=== PATIENT | female | born 1935 | race Caucasian/White ===

== ENCOUNTER 2017-10-09 11:33 | Inpatient (IN) | payer MEDICARE, MEDICAID ==
[~2017-10-09] VITALS: Ht 167.6 cm; Wt 45.5 kg
[~2017-10-09 11:33] MED LIST: MULT-933 PO; PANT40TA4 PO; SODI650T29 PO
[2017-10-09] MEDS ORDERED: dexamethasone sod phosphate 10mg/ml inj IV STA (12:01)
[2017-10-09] MEDS ORDERED: CefTRIAXone 2gm/D5W 50ml ADVTG 50 ML IV ONE (12:05)
[2017-10-09] MEDS ORDERED: clindamycin 600mg/D5W 50ml 50 ML IV ONE (12:05)
[2017-10-09 13:03] LABS: BASOPHILS % (AUTO) 0.3 % (0-1); EOSINOPHILS % (AUTO) 0 % (0-6); HEMATOCRIT 30.6 % (35.0-45.0); HEMOGLOBIN 11.1 g/dl (12.0-16.0); LYMPHOCYTES # (AUTO) 3.8 X10'3 (1.1-4.8); LYMPHOCYTES % (AUTO) 20.4 % (21-51); MEAN CORPUSCULAR HEMOGLOBIN 31.8 PG (27.0-31.0); MEAN CORPUSCULAR HGB CONC 36.3 % (33.0-36.5); MEAN CORPUSCULAR VOLUME 87.5 FL (78-98); MEAN PLATELET VOLUME 7.3 FL (7.4-10.4); MONOCYTES # (AUTO) 0.4 X10'3 (0-0.9); MONOCYTES % (AUTO) 1.9 % (2-12); NEUTROPHILS # (AUTO) 14.3 X10'3 (1.8-7.7); NEUTROPHILS % (AUTO) 77.4 % (42-75); PLATELET COUNT 174 X10'3 (140-440); RED CELL DISTRIBUTION WIDTH 15.7 % (11.5-14.5); WHITE BLOOD COUNT 18.5 X10'3 (4.5-11.0)
[2017-10-09 13:13] LABS: PARTIAL THROMBOPLASTIN TIME 21 SECONDS (22-32); PROTHROMBIN TIME 10.2 SECONDS (9.0-12.0)
[2017-10-09 13:16] LABS: ALANINE AMINOTRANSFERASE 16 U/L (12-78); ALBUMIN 3.1 G/DL (3.4-5.0); ALBUMIN/GLOBULIN RATIO 0.6 (1.1-1.5); ALKALINE PHOSPHATASE 85 IU/L (46-116); ANION GAP 21 (8-16); ASPARTATE AMINO TRANSFERASE 10 U/L (10-37); BILIRUBIN,TOTAL 0.4 MG/DL (0.1-1.0); BLOOD UREA NITROGEN 108 MG/DL (7-18); BUN/CREATININE RATIO 18.1 (6.6-38.0); CALCIUM 8.4 MG/DL (8.5-10.1); CHLORIDE 106 MMOL/L (99-107); CREATININE 5.98 MG/DL (0.40-0.90); GLUCOSE 105 MG/DL (70-104); MAGNESIUM 2.1 MG/DL (1.5-2.4); SODIUM 134 MMOL/L (135-145); TOTAL PROTEIN 8.7 G/DL (6.4-8.2); eGFR 7 ML/MIN
[2017-10-09 13:20] LABS: TOTAL CARBON DIOXIDE 6.9 MMOL/L (24-32)
[2017-10-09] MEDS ORDERED: normal saline 1000ml 1,000 ML IV ONE ×2 (13:35→16:30)
[2017-10-09 14:06] LABS: PLATELET ESTIMATE NORMAL
[2017-10-09 14:07] LABS: ANISOCYTOSIS 1+; POLYCHROMASIA 1+; SPHEROCYTES 1+
[2017-10-09 14:08] LABS: ROULEAUX 1+; TEAR DROP CELLS 1+
[2017-10-09 16:00] LABS: CLARITY,URINE CLOUDY (Clear); COLOR,URINE YELLOW (Yellow); GLUCOSE, URINE NEGATIVE (Neg); KETONES,URINE NEGATIVE (Neg); LEUKOCYTE ESTERASE ,URINE LARGE (Neg); NITRITES, URINE NEGATIVE (Neg); OCCULT BLOOD,URINE MODERATE (Neg); PH,URINE 5.5 (4.8-8.0); PROTEIN,URINE 30 mg/dl (Neg); UROBILINOGEN,URINE 0.2 E.U/dL (0.2-1.0)
[2017-10-09 16:03] LABS: UA COLLECTION TYPE CLN CATCH MIDSTREAM
[2017-10-09 16:24] LABS: BACTERIA,URINE 2+ /HPF (Neg); MUCUS STRANDS NONE SEEN /LPF (Neg); RBC,URINE 0-2 /HPF (0-2); SQUAMOUS EPITHELIAL CELL,UR FEW /LPF (FEW); WBC,URINE 50-100 /HPF (0-4)
[2017-10-09] MEDS ORDERED: sodium bicarbonate (8.4%) inj. 50 MEQ in dextrose 5%-water 1,000 ML IV ONE (20:10)
[2017-10-09] MEDS: sodium bicarbonate (8.4%) inj. 150 MEQ in dextrose 5%-water 1,000 ML IV SCH (21:25)
[2017-10-09] MEDS ORDERED: acetaminophen 325mg tablet PO PRN ×2 (21:25)
[2017-10-09 22:57] LABS: CREATINE KINASE 20 U/L (26-192); PHOSPHORUS 7.9 MG/DL (2.3-4.5)
[2017-10-09] MEDS ORDERED: vancomycin/NS 1 GM ADD-VANTAGE 250 ML IV ONE (23:40)
[2017-10-10] VITALS (24 sets, daily range): BP systolic 87–110; BP diastolic 39–76
[2017-10-10 00:17] LABS: RHEUM FACTOR QUAL REFLEX TITER POSITIVE (Neg)
[2017-10-10 00:29] LABS: RF TITER 20 IU/ml (Neg)
[2017-10-10] MEDS: piperacillin-tazo 2.25gm/50ml 50 ML IV SCH ×3 (00:59→16:53)
[2017-10-10 06:18] LABS: BASOPHILS % (AUTO) 0 % (0-1); EOSINOPHILS # (AUTO) 0.2 X10'3 (0-0.9); EOSINOPHILS % (AUTO) 1.7 % (0-6); HEMOGLOBIN 9.3 g/dl (12.0-16.0); LYMPHOCYTES # (AUTO) 1.7 X10'3 (1.1-4.8); LYMPHOCYTES % (AUTO) 11.8 % (21-51); MEAN CORPUSCULAR HEMOGLOBIN 31.5 PG (27.0-31.0); MEAN CORPUSCULAR HGB CONC 35.8 % (33.0-36.5); MONOCYTES # (AUTO) 0.1 X10'3 (0-0.9); MONOCYTES % (AUTO) 0.9 % (2-12); NEUTROPHILS % (AUTO) 85.6 % (42-75); PLATELET COUNT 145 X10'3 (140-440); RED BLOOD COUNT 2.95 X10'6 (4.20-5.60); RED CELL DISTRIBUTION WIDTH 16.4 % (11.5-14.5); WHITE BLOOD COUNT 14.1 X10'3 (4.5-11.0)
[2017-10-10 06:51] LABS: ALANINE AMINOTRANSFERASE 15 U/L (12-78); ALBUMIN 2.3 G/DL (3.4-5.0); ALBUMIN/GLOBULIN RATIO 0.5 (1.1-1.5); ALKALINE PHOSPHATASE 72 IU/L (46-116); ANION GAP 19 (8-16); ASPARTATE AMINO TRANSFERASE 11 U/L (10-37); BILIRUBIN,TOTAL 0.2 MG/DL (0.1-1.0); BLOOD UREA NITROGEN 98 MG/DL (7-18); BUN/CREATININE RATIO 19.3 (6.6-38.0); CALCIUM 7.6 MG/DL (8.5-10.1); CHLORIDE 110 MMOL/L (99-107); CREATININE 5.09 MG/DL (0.40-0.90); GLUCOSE 173 MG/DL (70-104); MAGNESIUM 1.9 MG/DL (1.5-2.4); POTASSIUM 4.2 MMOL/L (3.5-5.1); SODIUM 137 MMOL/L (135-145); TOTAL PROTEIN 6.9 G/DL (6.4-8.2); eGFR 8 ML/MIN
[2017-10-10 06:57] LABS: TOTAL CARBON DIOXIDE 7.9 MMOL/L (24-32)
[2017-10-10] MEDS ORDERED: vancomycin/NS 1 GM ADD-VANTAGE 250 ML X 1 DOSE IV PRN (08:00)
[2017-10-10] MEDS: pantoprazole 40 MG vial IV SCH (08:40)
[2017-10-10] MEDS: heparin, porcine 5000 units/ml vial SQ SCH ×2 (08:40→20:21)
[2017-10-10] MEDS: sodium bicarbonate (8.4%) inj. 150 MEQ in dextrose 5%-water 1,000 ML IV SCH ×2 (11:19→21:38)
[2017-10-10 14:12] LABS: SODIUM,URINE RANDOM < 15 MEQ/L; TOTAL PROTEIN,URINE RANDOM 89.4 MG/DL
[2017-10-10] MEDS: ondansetron/PF 4mg/2ml inj IV PRN (21:35)
[2017-10-11] VITALS (24 sets, daily range): BP systolic 82–113; BP diastolic 40–57
[2017-10-11] MEDS: piperacillin-tazo 2.25gm/50ml 50 ML IV SCH ×3 (00:04→16:35)
[2017-10-11 01:57] LABS: UREA NITROGEN 24HR,URINE 6.3 GM/24HR (7-20)
[2017-10-11] MEDS: VANCOMYCIN LEVEL IV SCH (03:00)
[2017-10-11] MEDS: ondansetron/PF 4mg/2ml inj IV PRN (04:47)
[2017-10-11 06:18] LABS: ALANINE AMINOTRANSFERASE 9 U/L (12-78); ALBUMIN 2.1 G/DL (3.4-5.0); ALBUMIN/GLOBULIN RATIO 0.5 (1.1-1.5); ALKALINE PHOSPHATASE 72 IU/L (46-116); ANION GAP 13 (8-16); ASPARTATE AMINO TRANSFERASE 10 U/L (10-37); BASOPHILS # (AUTO) 0.1 X10'3 (0-0.2); BASOPHILS % (AUTO) 0.6 % (0-1); BILIRUBIN,TOTAL 0.4 MG/DL (0.1-1.0); BLOOD UREA NITROGEN 85 MG/DL (7-18); BUN/CREATININE RATIO 18.5 (6.6-38.0); CALCIUM 7.1 MG/DL (8.5-10.1); CHLORIDE 102 MMOL/L (99-107); CREATININE 4.59 MG/DL (0.40-0.90); EOSINOPHILS # (AUTO) 0.8 X10'3 (0-0.9); EOSINOPHILS % (AUTO) 4.7 % (0-6); GLUCOSE 144 MG/DL (70-104); HEMATOCRIT 28.6 % (35.0-45.0); HEMOGLOBIN 10.3 g/dl (12.0-16.0); LYMPHOCYTES # (AUTO) 2.5 X10'3 (1.1-4.8); LYMPHOCYTES % (AUTO) 14.9 % (21-51); MAGNESIUM 1.5 MG/DL (1.5-2.4); MEAN CORPUSCULAR HEMOGLOBIN 31.1 PG (27.0-31.0); MEAN CORPUSCULAR HGB CONC 35.9 % (33.0-36.5); MEAN CORPUSCULAR VOLUME 86.6 FL (78-98); MEAN PLATELET VOLUME 7.6 FL (7.4-10.4); MONOCYTES # (AUTO) 0.4 X10'3 (0-0.9); MONOCYTES % (AUTO) 2.5 % (2-12); NEUTROPHILS # (AUTO) 13.1 X10'3 (1.8-7.7); NEUTROPHILS % (AUTO) 77.3 % (42-75); PHOSPHORUS 5.9 MG/DL (2.3-4.5); PLATELET COUNT 155 X10'3 (140-440); RED BLOOD COUNT 3.31 X10'6 (4.20-5.60); RED CELL DISTRIBUTION WIDTH 16.4 % (11.5-14.5); SODIUM 133 MMOL/L (135-145); TOTAL CARBON DIOXIDE 18.4 MMOL/L (24-32); TOTAL PROTEIN 6.7 G/DL (6.4-8.2); VANCOMYCIN,RANDOM 12.4 UG/ML; eGFR 9 ML/MIN
[2017-10-11 06:23] LABS: POTASSIUM 2.9 MMOL/L (3.5-5.1)
[2017-10-11] MEDS ORDERED: potassium Cl 20 mEq SR tablet PO PRN ×2 (07:05)
[2017-10-11] MEDS ORDERED: potassium Cl 40MEQ/NS 500ml 500 ML IV PRN (07:05)
[2017-10-11] MEDS: heparin, porcine 5000 units/ml vial SQ SCH ×2 (08:18→19:38)
[2017-10-11] MEDS: pantoprazole 40 MG vial IV SCH (08:18)
[2017-10-11] MEDS: LACTOBACILLUS RHAMNOSUS GG 15 billion unit sprinkle caps PO SCH (08:18)
[2017-10-11] MEDS: K, MAG and/or Phos replacement - Verify level? MC SCH (08:18)
[2017-10-11] MEDS: potassium Cl 40MEQ/NS 500ml 500 ML IV PRN ×2 (10:13→20:12)
[2017-10-11] MEDS ORDERED: dexamethasone 4mg/ml inj IM SCH (14:00)
[2017-10-11] MEDS: clindamycin 600mg/D5W 50ml 50 ML IV SCH ×2 (15:05→19:37)
[2017-10-11] MEDS: dexamethasone 4mg/ml inj IV SCH ×2 (15:07→19:37)
[2017-10-11] MEDS: [UNRECOGNIZED DRUG - OTHER] IV SCH (21:25)
[2017-10-11] MEDS: SODIUM BICARBONATE IV SCH (21:25)
[2017-10-11] MEDS: POTASSIUM CL IV SCH (21:25)
[2017-10-11] MEDS ORDERED: polyethylene glycol 3350 17gm powd pack PO PRN (21:25)
[2017-10-12] VITALS (14 sets, daily range): BP systolic 96–122; BP diastolic 50–69
[2017-10-12] MEDS: piperacillin-tazo 2.25gm/50ml 50 ML IV SCH ×4 (00:06→23:54)
[2017-10-12] MEDS: POTASSIUM CL IV SCH ×2 (00:08→06:37)
[2017-10-12] MEDS: SODIUM BICARBONATE IV SCH ×2 (00:08→06:37)
[2017-10-12] MEDS: [UNRECOGNIZED DRUG - OTHER] IV SCH ×2 (00:08→06:37)
[2017-10-12] MEDS: VANCOMYCIN LEVEL IV SCH (00:53)
[2017-10-12] MEDS: clindamycin 600mg/D5W 50ml 50 ML IV SCH ×4 (01:06→20:44)
[2017-10-12] MEDS: dexamethasone 4mg/ml inj IV SCH ×4 (01:06→20:44)
[2017-10-12 05:33] LABS: BASOPHILS % (AUTO) 0 % (0-1); EOSINOPHILS # (AUTO) 0.1 X10'3 (0-0.9); EOSINOPHILS % (AUTO) 0.7 % (0-6); HEMATOCRIT 22.9 % (35.0-45.0); HEMOGLOBIN 8.4 g/dl (12.0-16.0); LYMPHOCYTES # (AUTO) 1.2 X10'3 (1.1-4.8); LYMPHOCYTES % (AUTO) 9.6 % (21-51); MEAN CORPUSCULAR HEMOGLOBIN 31.6 PG (27.0-31.0); MEAN CORPUSCULAR HGB CONC 36.8 % (33.0-36.5); MEAN CORPUSCULAR VOLUME 85.9 FL (78-98); MEAN PLATELET VOLUME 8.2 FL (7.4-10.4); MONOCYTES % (AUTO) 0.3 % (2-12); NEUTROPHILS % (AUTO) 89.4 % (42-75); PLATELET COUNT 123 X10'3 (140-440); RED BLOOD COUNT 2.67 X10'6 (4.20-5.60); RED CELL DISTRIBUTION WIDTH 16.5 % (11.5-14.5); WHITE BLOOD COUNT 12.3 X10'3 (4.5-11.0)
[2017-10-12 05:41] LABS: ANISOCYTOSIS 1+; PLATELET ESTIMATE DECREASED
[2017-10-12 05:42] LABS: ELLIPTOCYTES FEW; POLYCHROMASIA FEW; SPHEROCYTES FEW; TEAR DROP CELLS FEW
[2017-10-12 05:58] LABS: ALANINE AMINOTRANSFERASE 19 U/L (12-78); ALBUMIN 1.8 G/DL (3.4-5.0); ALBUMIN/GLOBULIN RATIO 0.4 (1.1-1.5); ALKALINE PHOSPHATASE 94 IU/L (46-116); ANION GAP 12 (8-16); ASPARTATE AMINO TRANSFERASE 13 U/L (10-37); BILIRUBIN,TOTAL 0.3 MG/DL (0.1-1.0); BLOOD UREA NITROGEN 68 MG/DL (7-18); BUN/CREATININE RATIO 18.6 (6.6-38.0); CALCIUM 6.3 MG/DL (8.5-10.1); CHLORIDE 102 MMOL/L (99-107); CREATININE 3.65 MG/DL (0.40-0.90); GLUCOSE 191 MG/DL (70-104); MAGNESIUM 1.3 MG/DL (1.5-2.4); PHOSPHORUS 5.3 MG/DL (2.3-4.5); POTASSIUM 4.7 MMOL/L (3.5-5.1); SODIUM 138 MMOL/L (135-145); TOTAL CARBON DIOXIDE 24.2 MMOL/L (24-32); eGFR 12 ML/MIN
[2017-10-12] MEDS: K, MAG and/or Phos replacement - Verify level? MC SCH (08:00)
[2017-10-12] MEDS: pantoprazole 40 MG vial IV SCH (09:05)
[2017-10-12] MEDS: heparin, porcine 5000 units/ml vial SQ SCH ×2 (09:06→20:00)
[2017-10-12] MEDS: magnesium Cl slow-release 64mg tablet PO PRN ×2 (09:07→17:39)
[2017-10-12] MEDS: LACTOBACILLUS RHAMNOSUS GG 15 billion unit sprinkle caps PO SCH (09:07)
[2017-10-12] MEDS ORDERED: AMIO200T4 PO (11:31)
[2017-10-12] MEDS: amiodarone 200mg tablet PO SCH (23:54)
[2017-10-13] MEDS: clindamycin 600mg/D5W 50ml 50 ML IV SCH ×4 (02:24→19:43)
[2017-10-13] MEDS: dexamethasone 4mg/ml inj IV SCH ×4 (02:24→19:43)
[2017-10-13 06:18] LABS: BASOPHILS % (AUTO) 0 % (0-1); EOSINOPHILS # (AUTO) 0.3 X10'3 (0-0.9); EOSINOPHILS % (AUTO) 1.9 % (0-6); HEMATOCRIT 23.4 % (35.0-45.0); HEMOGLOBIN 8.4 g/dl (12.0-16.0); LYMPHOCYTES # (AUTO) 1.9 X10'3 (1.1-4.8); LYMPHOCYTES % (AUTO) 12.9 % (21-51); MEAN CORPUSCULAR HEMOGLOBIN 31.6 PG (27.0-31.0); MEAN CORPUSCULAR HGB CONC 36.1 % (33.0-36.5); MEAN CORPUSCULAR VOLUME 87.5 FL (78-98); MEAN PLATELET VOLUME 8.4 FL (7.4-10.4); MONOCYTES # (AUTO) 0.2 X10'3 (0-0.9); MONOCYTES % (AUTO) 1.5 % (2-12); NEUTROPHILS # (AUTO) 12.4 X10'3 (1.8-7.7); NEUTROPHILS % (AUTO) 83.7 % (42-75); PLATELET COUNT 132 X10'3 (140-440); RED BLOOD COUNT 2.67 X10'6 (4.20-5.60); RED CELL DISTRIBUTION WIDTH 16.3 % (11.5-14.5); WHITE BLOOD COUNT 14.8 X10'3 (4.5-11.0)
[2017-10-13 06:46] LABS: ALANINE AMINOTRANSFERASE 18 U/L (12-78); ALBUMIN 1.9 G/DL (3.4-5.0); ALBUMIN/GLOBULIN RATIO 0.5 (1.1-1.5); ALKALINE PHOSPHATASE 71 IU/L (46-116); ANION GAP 10 (8-16); ASPARTATE AMINO TRANSFERASE 12 U/L (10-37); BILIRUBIN,TOTAL 0.3 MG/DL (0.1-1.0); BLOOD UREA NITROGEN 66 MG/DL (7-18); BUN/CREATININE RATIO 20.6 (6.6-38.0); CALCIUM 6.3 MG/DL (8.5-10.1); CHLORIDE 99 MMOL/L (99-107); GLUCOSE 138 MG/DL (70-104); MAGNESIUM 1.4 MG/DL (1.5-2.4); PHOSPHORUS 4.8 MG/DL (2.3-4.5); POTASSIUM 4.6 MMOL/L (3.5-5.1); SODIUM 134 MMOL/L (135-145); TOTAL CARBON DIOXIDE 24.7 MMOL/L (24-32); TOTAL PROTEIN 6.1 G/DL (6.4-8.2); eGFR 14 ML/MIN
[2017-10-13 07:00] VITALS: BP 124/88
[2017-10-13] MEDS: K, MAG and/or Phos replacement - Verify level? MC SCH (08:00)
[2017-10-13] MEDS: magnesium Cl slow-release 64mg tablet PO PRN ×2 (08:06→17:34)
[2017-10-13] MEDS: amiodarone 200mg tablet PO SCH ×2 (08:06→19:43)
[2017-10-13] MEDS: pantoprazole 40mg Tablet.DR PO SCH (08:06)
[2017-10-13] MEDS: heparin, porcine 5000 units/ml vial SQ SCH ×2 (08:06→19:43)
[2017-10-13] MEDS: LACTOBACILLUS RHAMNOSUS GG 15 billion unit sprinkle caps PO SCH (08:06)
[2017-10-13] MEDS: piperacillin-tazo 2.25gm/50ml 50 ML IV SCH ×3 (10:12→23:47)
[2017-10-13] MEDS: normal saline 1000ml 1,000 ML IV SCH (14:05)
[2017-10-13] MEDS: LACTOSE-FREE FOOD 237ML (BOOST) PO SCH (18:21)
[2017-10-13 19:10] LABS: ANTINUCLEAR ANTIBODIES Positive (Negative)
[2017-10-13 20:00] VITALS: BP 124/58
[2017-10-14 00:01] VITALS: BP 113/54
[2017-10-14] MEDS: clindamycin 600mg/D5W 50ml 50 ML IV SCH ×4 (01:33→20:26)
[2017-10-14] MEDS: dexamethasone 4mg/ml inj IV SCH ×4 (01:33→20:27)
[2017-10-14 05:22] LABS: COMPLEMENT C3, SERUM 63 mg/dL (82-167); COMPLEMENT C4, SERUM <2 mg/dL (14-44)
[2017-10-14 05:41] LABS: BASOPHILS % (AUTO) 0.1 % (0-1); EOSINOPHILS # (AUTO) 0.2 X10'3 (0-0.9); EOSINOPHILS % (AUTO) 1.9 % (0-6); HEMATOCRIT 22.4 % (35.0-45.0); HEMOGLOBIN 8.1 g/dl (12.0-16.0); LYMPHOCYTES # (AUTO) 2.3 X10'3 (1.1-4.8); LYMPHOCYTES % (AUTO) 18.9 % (21-51); MEAN CORPUSCULAR HEMOGLOBIN 31.6 PG (27.0-31.0); MEAN CORPUSCULAR HGB CONC 36.4 % (33.0-36.5); MEAN PLATELET VOLUME 8.3 FL (7.4-10.4); MONOCYTES # (AUTO) 0.2 X10'3 (0-0.9); MONOCYTES % (AUTO) 1.6 % (2-12); NEUTROPHILS # (AUTO) 9.3 X10'3 (1.8-7.7); NEUTROPHILS % (AUTO) 77.5 % (42-75); PLATELET COUNT 141 X10'3 (140-440); RED BLOOD COUNT 2.58 X10'6 (4.20-5.60); RED CELL DISTRIBUTION WIDTH 16.2 % (11.5-14.5); WHITE BLOOD COUNT 12.1 X10'3 (4.5-11.0)
[2017-10-14 06:04] LABS: ALANINE AMINOTRANSFERASE 15 U/L (12-78); ALBUMIN 1.9 G/DL (3.4-5.0); ALBUMIN/GLOBULIN RATIO 0.5 (1.1-1.5); ALKALINE PHOSPHATASE 72 IU/L (46-116); ANION GAP 10 (8-16); ASPARTATE AMINO TRANSFERASE 14 U/L (10-37); BILIRUBIN,TOTAL 0.2 MG/DL (0.1-1.0); BLOOD UREA NITROGEN 68 MG/DL (7-18); CALCIUM 6.6 MG/DL (8.5-10.1); CHLORIDE 101 MMOL/L (99-107); CREATININE 2.96 MG/DL (0.40-0.90); GLUCOSE 132 MG/DL (70-104); MAGNESIUM 1.4 MG/DL (1.5-2.4); PHOSPHORUS 4.9 MG/DL (2.3-4.5); POTASSIUM 4.8 MMOL/L (3.5-5.1); SODIUM 133 MMOL/L (135-145); TOTAL CARBON DIOXIDE 21.7 MMOL/L (24-32); TOTAL PROTEIN 6.1 G/DL (6.4-8.2); eGFR 15 ML/MIN
[2017-10-14] MEDS: normal saline 1000ml 1,000 ML IV SCH ×2 (06:45→23:25)
[2017-10-14 07:17] VITALS: BP 115/65
[2017-10-14] MEDS: LACTOBACILLUS RHAMNOSUS GG 15 billion unit sprinkle caps PO SCH (07:30)
[2017-10-14] MEDS: pantoprazole 40mg Tablet.DR PO SCH (07:32)
[2017-10-14] MEDS: LACTOSE-FREE FOOD 237ML (BOOST) PO SCH ×3 (08:00→18:00)
[2017-10-14] MEDS: K, MAG and/or Phos replacement - Verify level? MC SCH (08:00)
[2017-10-14] MEDS: heparin, porcine 5000 units/ml vial SQ SCH ×2 (08:32→20:26)
[2017-10-14] MEDS: amiodarone 200mg tablet PO SCH ×2 (08:32→20:27)
[2017-10-14] MEDS: piperacillin-tazo 2.25gm/50ml 50 ML IV SCH ×2 (08:33→16:42)
[2017-10-14 11:00] VITALS: BP 121/70
[2017-10-14 20:00] VITALS: BP 106/50
[2017-10-15] VITALS: BP 107/52
[2017-10-15] MEDS: piperacillin-tazo 2.25gm/50ml 50 ML IV SCH ×2 (00:04→09:50)
[2017-10-15] MEDS: clindamycin 600mg/D5W 50ml 50 ML IV SCH ×3 (01:51→15:59)
[2017-10-15] MEDS: dexamethasone 4mg/ml inj IV SCH ×2 (01:53→08:13)
[2017-10-15] MEDS: normal saline 1000ml 1,000 ML IV SCH (05:27)
[2017-10-15 06:00] VITALS: BP 125/70
[2017-10-15 06:04] LABS: BASOPHILS % (AUTO) 0.1 % (0-1); EOSINOPHILS # (AUTO) 0.2 X10'3 (0-0.9); EOSINOPHILS % (AUTO) 1.9 % (0-6); HEMATOCRIT 22.9 % (35.0-45.0); HEMOGLOBIN 8.2 g/dl (12.0-16.0); LYMPHOCYTES # (AUTO) 2.1 X10'3 (1.1-4.8); LYMPHOCYTES % (AUTO) 21.8 % (21-51); MEAN CORPUSCULAR HEMOGLOBIN 31.2 PG (27.0-31.0); MEAN CORPUSCULAR HGB CONC 35.7 % (33.0-36.5); MEAN CORPUSCULAR VOLUME 87.4 FL (78-98); MEAN PLATELET VOLUME 8.4 FL (7.4-10.4); MONOCYTES # (AUTO) 0.2 X10'3 (0-0.9); NEUTROPHILS # (AUTO) 7.1 X10'3 (1.8-7.7); NEUTROPHILS % (AUTO) 74.2 % (42-75); PLATELET COUNT 124 X10'3 (140-440); RED BLOOD COUNT 2.62 X10'6 (4.20-5.60); RED CELL DISTRIBUTION WIDTH 15.6 % (11.5-14.5); WHITE BLOOD COUNT 9.6 X10'3 (4.5-11.0)
[2017-10-15 06:40] LABS: ALANINE AMINOTRANSFERASE 19 U/L (12-78); ALBUMIN 1.9 G/DL (3.4-5.0); ALBUMIN/GLOBULIN RATIO 0.5 (1.1-1.5); ALKALINE PHOSPHATASE 74 IU/L (46-116); ANION GAP 11 (8-16); ASPARTATE AMINO TRANSFERASE 15 U/L (10-37); BILIRUBIN,TOTAL 0.3 MG/DL (0.1-1.0); BLOOD UREA NITROGEN 70 MG/DL (7-18); BUN/CREATININE RATIO 24.3 (6.6-38.0); CALCIUM 6.6 MG/DL (8.5-10.1); CHLORIDE 103 MMOL/L (99-107); CREATININE 2.88 MG/DL (0.40-0.90); GLUCOSE 119 MG/DL (70-104); MAGNESIUM 1.4 MG/DL (1.5-2.4); POTASSIUM 4.8 MMOL/L (3.5-5.1); SODIUM 135 MMOL/L (135-145); TOTAL PROTEIN 5.9 G/DL (6.4-8.2); eGFR 16 ML/MIN
[2017-10-15] MEDS: LACTOSE-FREE FOOD 237ML (BOOST) PO SCH ×2 (08:00→13:00)
[2017-10-15] MEDS: K, MAG and/or Phos replacement - Verify level? MC SCH (08:00)
[2017-10-15] MEDS: LACTOBACILLUS RHAMNOSUS GG 15 billion unit sprinkle caps PO SCH (08:09)
[2017-10-15] MEDS: pantoprazole 40mg Tablet.DR PO SCH (08:09)
[2017-10-15] MEDS: amiodarone 200mg tablet PO SCH (08:09)
[2017-10-15] MEDS: heparin, porcine 5000 units/ml vial SQ SCH (08:11)
[2017-10-15 11:00] VITALS: BP 116/53
== END 2017-10-15 16:11 | DRG 683 ==
LOC: ER 11:33 → ED HOLD 21:21 → ICU 2S 23:54 → SUR 3N 10-12 15:36
PROVIDERS: ADMIT Internal Medicine Critical Care Medicine; ATTEND Family Medicine
DX: N17.9 Acute kidney failure, unspecified (principal); E44.0 Moderate protein-calorie malnutrition; E86.0 Dehydration; K94.09 Other complications of colostomy; N39.0 Urinary tract infection, site not specified; Z68.1 Body mass index [BMI] 19.9 or less, adult; F03.90 Unspecified dementia, unspecified severity, without behavioral disturbance, psychotic disturbance, mood disturbance, and anxiety; K57.30 Diverticulosis of large intestine without perforation or abscess without bleeding; N18.9 Chronic kidney disease, unspecified; E04.2 Nontoxic multinodular goiter; K11.20 Sialoadenitis, unspecified; B96.20 Unspecified Escherichia coli [E. coli] as the cause of diseases classified elsewhere; Z88.2 Allergy status to sulfonamides; Z90.49 Acquired absence of other specified parts of digestive tract
CPT/HCPCS: 36415; 70490; 71045; 74176; 76536; 80053; 80202; 81001; 82550; 82570; 82595; 83605; 83735; 84100; 84133; 84145; 84156; 84300; 84439; 84443; 84560; 85025; 85610; 85730; 86038; 86160; 86430; 86431; 87040; 87070; 87077; 87088; 87186; 93005; 96365; 96375; 97110; 97116; 97162; 97530; 99285; A4315; A6213; A6449; C1758; C9113; J0696; J1100; J1644; J2270; J2405; J2543; J3370; J3480; J3490; J7030

== ENCOUNTER 2017-11-10 17:38 | Inpatient (IN) | payer MEDICARE, MEDICAID ==
[~2017-11-10] VITALS: Ht 167.6 cm; Wt 43.0 kg
[~2017-11-10 17:38] MED LIST changes: +AMIO200T4 PO; +NAFCILLIN IV ONE; +NORMAL SALINE IV ONE; -SODI650T29 PO
[2017-11-10 18:54] LABS: MEAN CORPUSCULAR HEMOGLOBIN 34.1 PG (27.0-31.0); RED CELL DISTRIBUTION WIDTH 19.1 % (11.5-14.5); WHITE BLOOD COUNT 10.9 X10'3 (4.5-11.0)
[2017-11-10 18:59] LABS: CLARITY,URINE Clear (Clear); COLOR,URINE Yellow (Yellow); GLUCOSE, URINE Negative (Neg); KETONES,URINE Negative (Neg); LEUKOCYTE ESTERASE ,URINE Negative (Neg); NITRITES, URINE Negative (Neg); OCCULT BLOOD,URINE Negative (Neg); PROTEIN,URINE 30 mg/dl (Neg); UROBILINOGEN,URINE 0.2 E.U/dL (0.2-1.0)
[2017-11-10 19:01] LABS: ALANINE AMINOTRANSFERASE 16 U/L (12-78); ALBUMIN/GLOBULIN RATIO 0.5 (1.1-1.5); ALKALINE PHOSPHATASE 97 IU/L (46-116); ANION GAP 18 (8-16); ASPARTATE AMINO TRANSFERASE 11 U/L (10-37); BILIRUBIN,TOTAL 0.2 MG/DL (0.1-1.0); BLOOD UREA NITROGEN 100 MG/DL (7-18); BUN/CREATININE RATIO 18.9 (6.6-38.0); CALCIUM 8.3 MG/DL (8.5-10.1); CHLORIDE 103 MMOL/L (99-107); GLUCOSE 115 MG/DL (70-104); MAGNESIUM 1.9 MG/DL (1.5-2.4); POTASSIUM 4.8 MMOL/L (3.5-5.1); SODIUM 132 MMOL/L (135-145); TOTAL PROTEIN 8.7 G/DL (6.4-8.2); eGFR 8 ML/MIN
[2017-11-10 19:03] LABS: TOTAL CARBON DIOXIDE 11.5 MMOL/L (24-32)
[2017-11-10 19:06] LABS: UA COLLECTION TYPE STRAIGHT CATH
[2017-11-10 19:16] LABS: AMORPHOUS URATES 1+; BACTERIA,URINE NONE SEEN /HPF (Neg); MUCUS STRANDS NONE SEEN /LPF (Neg); RBC,URINE NONE SEEN /HPF (0-2); SQUAMOUS EPITHELIAL CELL,UR NONE SEEN /LPF (FEW); WBC,URINE 0-4 /HPF (0-4)
[2017-11-10 19:28] LABS: BASOPHILS # (AUTO) 0.1 X10'3 (0-0.2); BASOPHILS % (AUTO) 0.6 % (0-1); EOSINOPHILS # (AUTO) 0.2 X10'3 (0-0.9); EOSINOPHILS % (AUTO) 1.8 % (0-6); HEMATOCRIT 27.6 % (35.0-45.0); HEMOGLOBIN 10.6 g/dl (12.0-16.0); LYMPHOCYTES # (AUTO) 1.9 X10'3 (1.1-4.8); LYMPHOCYTES % (AUTO) 17.7 % (21-51); MEAN CORPUSCULAR HGB CONC 38.3 % (33.0-36.5); MEAN CORPUSCULAR VOLUME 89.1 FL (78-98); MEAN PLATELET VOLUME 7.8 FL (7.4-10.4); MONOCYTES # (AUTO) 0.6 X10'3 (0-0.9); MONOCYTES % (AUTO) 5.4 % (2-12); NEUTROPHILS # (AUTO) 8.1 X10'3 (1.8-7.7); NEUTROPHILS % (AUTO) 74.5 % (42-75); PLATELET COUNT 238 X10'3 (140-440)
[2017-11-10] MEDS ORDERED: normal saline 1000ML IV soln IVB ONE (19:45)
[2017-11-10 20:21] LABS: ABG BASE EXCESS -18.1 mmol/L (-2.0-3.0); ABG HCO3 7.4 mmol/L (22.0-26.0); ABG OXYGEN SATURATION 98.3 % (95-98); ABG PH (T) 7.253 (7.350-7.450); ALLEN'S TEST Positive; FCOHb 0.3 % (0.5-1.5); FMetHb 0.7 % (0.3-1.12); FO2Hb 97.3 % (94-100); PATIENT TEMPERATURE 36.3; RESPIRATORY RATE (OBSERVED) 16 b/min
[2017-11-10 20:28] LABS: ANISOCYTOSIS 2+; PLATELET ESTIMATE NORMAL
[2017-11-10 20:34] LABS: BURR CELLS FEW; TEAR DROP CELLS FEW
[2017-11-10 20:35] LABS: SPHEROCYTES 1+
[2017-11-10] MEDS ORDERED: metroNIDAZOLE-Flagyl 500mg/NS 100 ML IV STA (20:36)
[2017-11-10 20:42] LABS: INR 0.9 INR; PROTHROMBIN TIME 9.8 SECONDS (9.0-12.0)
[2017-11-10 20:43] LABS: PARTIAL THROMBOPLASTIN TIME < 20 SECONDS (22-32)
[2017-11-10] MEDS ORDERED: NAFCILLIN IV ONE ×4 (20:45)
[2017-11-10] MEDS ORDERED: NORMAL SALINE IV ONE ×4 (20:45)
[2017-11-10] MEDS: sodium bicarbonate (8.4%) inj. 150 MEQ in dextrose 5%-water 1,000 ML IV SCH ×2 (21:14→22:29)
[2017-11-10] MEDS ORDERED: acetaminophen 325mg tablet PO PRN (21:15)
[2017-11-10] MEDS ORDERED: mag hydrox/Alum hydrox/simeth 30ml oral suspension PO PRN (21:15)
[2017-11-10] MEDS ORDERED: magnesium hydroxide 30ml (MOM) UD suspension PO PRN (21:15)
[2017-11-10] MEDS ORDERED: sodium bicarbonate (8.4%) inj. 150 MEQ in dextrose 5%-water 1,000 ML IV SCH (21:20)
[2017-11-10] MEDS ORDERED: HYDROcodone/acetaminophen 5mg/325mg tablet PO PRN (21:30)
[2017-11-10 21:47] LABS: BILIRUBIN,DIRECT 0.1 MG/DL (0-0.3)
[2017-11-10 22:30] VITALS: BP 124/56
[2017-11-10] MEDS ORDERED: MAGN400C PO (23:28)
[2017-11-10] MEDS ORDERED: FURO-150 PO (23:28)
[2017-11-10] MEDS ORDERED: OMEP20TA23 PO (23:28)
[2017-11-10] MEDS ORDERED: SODI15OR6 PO (23:28)
[2017-11-11 05:00] VITALS: BP 112/54
[2017-11-11 06:04] LABS: ALANINE AMINOTRANSFERASE 19 U/L (12-78); ALBUMIN 2.5 G/DL (3.4-5.0); ALBUMIN/GLOBULIN RATIO 0.5 (1.1-1.5); ALKALINE PHOSPHATASE 88 IU/L (46-116); ANION GAP 16 (8-16); ASPARTATE AMINO TRANSFERASE 10 U/L (10-37); BILIRUBIN,TOTAL 0.3 MG/DL (0.1-1.0); BLOOD UREA NITROGEN 98 MG/DL (7-18); BUN/CREATININE RATIO 19.6 (6.6-38.0); CALCIUM 7.8 MG/DL (8.5-10.1); CHLORIDE 106 MMOL/L (99-107); POTASSIUM 4.2 MMOL/L (3.5-5.1); SODIUM 135 MMOL/L (135-145); TOTAL PROTEIN 7.5 G/DL (6.4-8.2); eGFR 8 ML/MIN
[2017-11-11 06:33] LABS: MONOCYTES # (AUTO) 0.4 X10'3 (0-0.9); NEUTROPHILS # (AUTO) 6.5 X10'3 (1.8-7.7)
[2017-11-11 06:36] LABS: GLUCOSE 112 MG/DL (70-104)
[2017-11-11 06:40] LABS: TOTAL CARBON DIOXIDE 13.5 MMOL/L (24-32)
[2017-11-11 06:42] LABS: BASOPHILS % (AUTO) 0.2 % (0-1); EOSINOPHILS # (AUTO) 0.1 X10'3 (0-0.9); EOSINOPHILS % (AUTO) 1.6 % (0-6); HEMATOCRIT 25.6 % (35.0-45.0); HEMOGLOBIN 9.7 g/dl (12.0-16.0); MEAN CORPUSCULAR HEMOGLOBIN 33.8 PG (27.0-31.0); MEAN CORPUSCULAR HGB CONC 37.7 % (33.0-36.5); MEAN CORPUSCULAR VOLUME 89.8 FL (78-98); MEAN PLATELET VOLUME 7.2 FL (7.4-10.4); MONOCYTES % (AUTO) 4.9 % (2-12); NEUTROPHILS % (AUTO) 71.3 % (42-75); PLATELET COUNT 231 X10'3 (140-440); RED BLOOD COUNT 2.86 X10'6 (4.20-5.60); WHITE BLOOD COUNT 9.1 X10'3 (4.5-11.0)
[2017-11-11] MEDS: heparin, porcine 5000 units/ml vial SQ SCH ×2 (07:38→21:29)
[2017-11-11] MEDS: amiodarone 200mg tablet PO SCH (07:38)
[2017-11-11] MEDS: pantoprazole 40mg Tablet.DR PO SCH (07:38)
[2017-11-11] MEDS: HYDROcodone/acetaminophen 5mg/325mg tablet PO PRN ×2 (07:41→17:40)
[2017-11-11 10:00] VITALS: BP 100/52
[2017-11-11] MEDS: sodium bicarbonate (8.4%) inj. 150 MEQ in dextrose 5%-water 1,000 ML IV SCH (11:05)
[2017-11-11 12:12] LABS: ALBUMIN 2.3 G/DL (3.4-5.0); ANION GAP 14 (8-16); BLOOD UREA NITROGEN 92 MG/DL (7-18); BUN/CREATININE RATIO 19.8 (6.6-38.0); CALCIUM 7.4 MG/DL (8.5-10.1); CHLORIDE 105 MMOL/L (99-107); CREATININE 4.65 MG/DL (0.40-0.90); GLUCOSE 111 MG/DL (70-104); POTASSIUM 3.7 MMOL/L (3.5-5.1); SODIUM 136 MMOL/L (135-145); TOTAL CARBON DIOXIDE 16.6 MMOL/L (24-32); eGFR 9 ML/MIN
[2017-11-11 14:38] LABS: CLARITY,URINE CLEAR (Clear); COLOR,URINE YELLOW (Yellow); GLUCOSE, URINE NEGATIVE (Neg); KETONES,URINE NEGATIVE (Neg); LEUKOCYTE ESTERASE ,URINE NEGATIVE (Neg); NITRITES, URINE NEGATIVE (Neg); OCCULT BLOOD,URINE NEGATIVE (Neg); PH,URINE 5.5 (4.8-8.0); PROTEIN,URINE TRACE mg/dl (Neg); UROBILINOGEN,URINE 0.2 E.U/dL (0.2-1.0)
[2017-11-11 14:40] LABS: UA COLLECTION TYPE CLN CATCH MIDSTREAM
[2017-11-11 14:45] LABS: MUCUS STRANDS FEW /LPF (Neg); SQUAMOUS EPITHELIAL CELL,UR FEW /LPF (FEW)
[2017-11-11 14:46] LABS: COARSE GRANULAR CAST 0-3 /LPF (NEGATIVE)
[2017-11-11 14:47] LABS: BACTERIA,URINE FEW /HPF (Neg); RBC,URINE 0-2 /HPF (0-2); SODIUM,URINE RANDOM < 15 MEQ/L; TOTAL PROTEIN,URINE RANDOM 53.2 MG/DL; WBC,URINE 0-4 /HPF (0-4)
[2017-11-11 15:20] LABS: UA EOSINOPHILS NO EOS /HPF
[2017-11-11] MEDS: piperacillin-tazo 2.25gm/50ml 50 ML IV SCH (16:28)
[2017-11-11 18:00] VITALS: BP 108/54
[2017-11-11 18:17] LABS: ALBUMIN 2.4 G/DL (3.4-5.0); ANION GAP 15 (8-16); BLOOD UREA NITROGEN 84 MG/DL (7-18); BUN/CREATININE RATIO 19.3 (6.6-38.0); CALCIUM 7.4 MG/DL (8.5-10.1); CHLORIDE 102 MMOL/L (99-107); CREATININE 4.35 MG/DL (0.40-0.90); SODIUM 136 MMOL/L (135-145); TOTAL CARBON DIOXIDE 19.3 MMOL/L (24-32); eGFR 10 ML/MIN
[2017-11-11 18:19] LABS: GLUCOSE 108 MG/DL (70-104)
[2017-11-11] MEDS: ondansetron/PF 4mg/2ml inj IV PRN (18:59)
[2017-11-11 22:00] VITALS: BP 101/56
[2017-11-12] MEDS: sodium bicarbonate (8.4%) inj. 150 MEQ in dextrose 5%-water 1,000 ML IV SCH (00:01)
[2017-11-12] MEDS: piperacillin-tazo 2.25gm/50ml 50 ML IV SCH ×3 (00:01→16:49)
[2017-11-12] MEDS: HYDROcodone/acetaminophen 5mg/325mg tablet PO PRN ×3 (00:05→22:15)
[2017-11-12 06:00] VITALS: BP 102/51
[2017-11-12 06:53] LABS: ALANINE AMINOTRANSFERASE 14 U/L (12-78); ALBUMIN 2.1 G/DL (3.4-5.0); ALBUMIN/GLOBULIN RATIO 0.5 (1.1-1.5); ALKALINE PHOSPHATASE 71 IU/L (46-116); ANION GAP 14 (8-16); ASPARTATE AMINO TRANSFERASE 10 U/L (10-37); BILIRUBIN,TOTAL 0.3 MG/DL (0.1-1.0); BLOOD UREA NITROGEN 81 MG/DL (7-18); BUN/CREATININE RATIO 19.3 (6.6-38.0); CHLORIDE 101 MMOL/L (99-107); CREATININE 4.19 MG/DL (0.40-0.90); GLUCOSE 101 MG/DL (70-104); POTASSIUM 3.3 MMOL/L (3.5-5.1); SODIUM 139 MMOL/L (135-145); TOTAL CARBON DIOXIDE 23.8 MMOL/L (24-32); TOTAL PROTEIN 6.6 G/DL (6.4-8.2); eGFR 10 ML/MIN
[2017-11-12 06:54] LABS: BASOPHILS % (AUTO) 0.6 % (0-1); EOSINOPHILS # (AUTO) 0.2 X10'3 (0-0.9); EOSINOPHILS % (AUTO) 2.5 % (0-6); HEMOGLOBIN 8.5 g/dl (12.0-16.0); LYMPHOCYTES # (AUTO) 2.4 X10'3 (1.1-4.8); LYMPHOCYTES % (AUTO) 28.9 % (21-51); MEAN CORPUSCULAR HEMOGLOBIN 34.5 PG (27.0-31.0); MEAN CORPUSCULAR HGB CONC 38.9 % (33.0-36.5); MEAN CORPUSCULAR VOLUME 88.7 FL (78-98); MEAN PLATELET VOLUME 7.1 FL (7.4-10.4); MONOCYTES # (AUTO) 0.4 X10'3 (0-0.9); MONOCYTES % (AUTO) 4.5 % (2-12); NEUTROPHILS # (AUTO) 5.4 X10'3 (1.8-7.7); NEUTROPHILS % (AUTO) 63.5 % (42-75); PLATELET COUNT 198 X10'3 (140-440); RED BLOOD COUNT 2.47 X10'6 (4.20-5.60); RED CELL DISTRIBUTION WIDTH 19.2 % (11.5-14.5); WHITE BLOOD COUNT 8.5 X10'3 (4.5-11.0)
[2017-11-12 07:10] LABS: HEMATOCRIT 21.9 % (35.0-45.0)
[2017-11-12] MEDS: pantoprazole 40mg Tablet.DR PO SCH (08:07)
[2017-11-12] MEDS: heparin, porcine 5000 units/ml vial SQ SCH ×2 (08:07→22:16)
[2017-11-12] MEDS: amiodarone 200mg tablet PO SCH (08:07)
[2017-11-12] MEDS: aspirin 325mg tablet, delayed-release (Ecotrin) PO SCH (08:07)
[2017-11-12 10:00] VITALS: BP 93/50
[2017-11-12] MEDS: sodium bicarbonate (8.4%) inj. 150 MEQ in sodium chloride 0.45% 1,000 ML IV SCH (13:24)
[2017-11-12 18:00] VITALS: BP 102/46
[2017-11-12] MEDS: ondansetron/PF 4mg/2ml inj IV PRN (18:36)
[2017-11-12 22:20] VITALS: BP 111/55
[2017-11-13] MEDS: piperacillin-tazo 2.25gm/50ml 50 ML IV SCH ×2 (00:02→08:08)
[2017-11-13] MEDS: HYDROcodone/acetaminophen 5mg/325mg tablet PO PRN ×2 (02:24→14:18)
[2017-11-13] MEDS: sodium bicarbonate (8.4%) inj. 150 MEQ in sodium chloride 0.45% 1,000 ML IV SCH ×2 (02:24→12:02)
[2017-11-13 05:30] VITALS: BP 96/51
[2017-11-13 06:42] LABS: BASOPHILS % (AUTO) 0.5 % (0-1); EOSINOPHILS # (AUTO) 0.2 X10'3 (0-0.9); EOSINOPHILS % (AUTO) 3.2 % (0-6); HEMATOCRIT 22.4 % (35.0-45.0); HEMOGLOBIN 8.5 g/dl (12.0-16.0); LYMPHOCYTES # (AUTO) 1.9 X10'3 (1.1-4.8); LYMPHOCYTES % (AUTO) 25.9 % (21-51); MEAN CORPUSCULAR HEMOGLOBIN 34.3 PG (27.0-31.0); MEAN CORPUSCULAR HGB CONC 38.2 % (33.0-36.5); MEAN CORPUSCULAR VOLUME 89.9 FL (78-98); MEAN PLATELET VOLUME 7.4 FL (7.4-10.4); MONOCYTES # (AUTO) 0.4 X10'3 (0-0.9); MONOCYTES % (AUTO) 5.1 % (2-12); NEUTROPHILS # (AUTO) 4.9 X10'3 (1.8-7.7); NEUTROPHILS % (AUTO) 65.3 % (42-75); PLATELET COUNT 188 X10'3 (140-440); RED BLOOD COUNT 2.49 X10'6 (4.20-5.60); RED CELL DISTRIBUTION WIDTH 18.8 % (11.5-14.5); WHITE BLOOD COUNT 7.5 X10'3 (4.5-11.0)
[2017-11-13 06:59] LABS: ALANINE AMINOTRANSFERASE 15 U/L (12-78); ALBUMIN 1.9 G/DL (3.4-5.0); ALBUMIN/GLOBULIN RATIO 0.4 (1.1-1.5); ALKALINE PHOSPHATASE 63 IU/L (46-116); ANION GAP 12 (8-16); ASPARTATE AMINO TRANSFERASE 10 U/L (10-37); BILIRUBIN,TOTAL 0.3 MG/DL (0.1-1.0); BLOOD UREA NITROGEN 73 MG/DL (7-18); BUN/CREATININE RATIO 18.3 (6.6-38.0); CALCIUM 6.8 MG/DL (8.5-10.1); CHLORIDE 98 MMOL/L (99-107); CREATININE 3.98 MG/DL (0.40-0.90); GLUCOSE 83 MG/DL (70-104); POTASSIUM 3.4 MMOL/L (3.5-5.1); SODIUM 140 MMOL/L (135-145); TOTAL CARBON DIOXIDE 30.4 MMOL/L (24-32); TOTAL PROTEIN 6.3 G/DL (6.4-8.2); eGFR 11 ML/MIN
[2017-11-13 07:48] LABS: ANISOCYTOSIS 2+; PLATELET ESTIMATE NORMAL
[2017-11-13 07:49] LABS: POLYCHROMASIA FEW; SPHEROCYTES 2+; TARGET CELLS FEW
[2017-11-13] MEDS: heparin, porcine 5000 units/ml vial SQ SCH ×2 (08:08→21:52)
[2017-11-13] MEDS: pantoprazole 40mg Tablet.DR PO SCH (08:08)
[2017-11-13] MEDS: aspirin 325mg tablet, delayed-release (Ecotrin) PO SCH (08:09)
[2017-11-13] MEDS: amiodarone 200mg tablet PO SCH (08:09)
[2017-11-13 10:00] VITALS: BP 102/48
[2017-11-13 18:00] VITALS: BP 107/47
[2017-11-13] MEDS: normal saline 1000ml 1,000 ML IV SCH (18:04)
[2017-11-13 22:00] VITALS: BP 112/52
[2017-11-14 05:13] LABS: BASOPHILS % (AUTO) 0.5 % (0-1); EOSINOPHILS # (AUTO) 0.2 X10'3 (0-0.9); EOSINOPHILS % (AUTO) 3.7 % (0-6); HEMATOCRIT 22.5 % (35.0-45.0); HEMOGLOBIN 8.6 g/dl (12.0-16.0); LYMPHOCYTES # (AUTO) 1.5 X10'3 (1.1-4.8); MEAN CORPUSCULAR HEMOGLOBIN 34.2 PG (27.0-31.0); MEAN CORPUSCULAR HGB CONC 38.1 % (33.0-36.5); MEAN CORPUSCULAR VOLUME 89.8 FL (78-98); MEAN PLATELET VOLUME 6.9 FL (7.4-10.4); MONOCYTES # (AUTO) 0.3 X10'3 (0-0.9); MONOCYTES % (AUTO) 4.2 % (2-12); NEUTROPHILS # (AUTO) 4.4 X10'3 (1.8-7.7); NEUTROPHILS % (AUTO) 68.6 % (42-75); PLATELET COUNT 187 X10'3 (140-440); RED CELL DISTRIBUTION WIDTH 18.6 % (11.5-14.5); WHITE BLOOD COUNT 6.4 X10'3 (4.5-11.0)
[2017-11-14 05:51] LABS: ALANINE AMINOTRANSFERASE 14 U/L (12-78); ALBUMIN 1.9 G/DL (3.4-5.0); ALBUMIN/GLOBULIN RATIO 0.4 (1.1-1.5); ALKALINE PHOSPHATASE 62 IU/L (46-116); ANION GAP 10 (8-16); ASPARTATE AMINO TRANSFERASE 12 U/L (10-37); BILIRUBIN,TOTAL 0.2 MG/DL (0.1-1.0); BLOOD UREA NITROGEN 70 MG/DL (7-18); BUN/CREATININE RATIO 19.6 (6.6-38.0); CALCIUM 7.1 MG/DL (8.5-10.1); CHLORIDE 97 MMOL/L (99-107); CREATININE 3.58 MG/DL (0.40-0.90); GLUCOSE 89 MG/DL (70-104); POTASSIUM 3.4 MMOL/L (3.5-5.1); SODIUM 137 MMOL/L (135-145); TOTAL CARBON DIOXIDE 29.8 MMOL/L (24-32); TOTAL PROTEIN 6.5 G/DL (6.4-8.2); eGFR 12 ML/MIN
[2017-11-14 06:00] VITALS: BP 124/60
[2017-11-14] MEDS: aspirin 325mg tablet, delayed-release (Ecotrin) PO SCH (09:09)
[2017-11-14] MEDS: pantoprazole 40mg Tablet.DR PO SCH (09:09)
[2017-11-14] MEDS: amiodarone 200mg tablet PO SCH (09:09)
[2017-11-14] MEDS: heparin, porcine 5000 units/ml vial SQ SCH ×2 (09:10→19:33)
[2017-11-14] MEDS: HYDROcodone/acetaminophen 5mg/325mg tablet PO PRN (09:11)
[2017-11-14 10:00] VITALS: BP 119/74
[2017-11-14] MEDS: amox tr/potassium clavulanate 875/125mg TAB PO SCH (17:53)
[2017-11-14] MEDS: normal saline 1000ml 1,000 ML IV SCH (17:54)
[2017-11-14 18:00] VITALS: BP 113/51
[2017-11-14 22:00] VITALS: BP 134/59
[2017-11-15 05:35] LABS: BASOPHILS % (AUTO) 0.7 % (0-1); EOSINOPHILS # (AUTO) 0.2 X10'3 (0-0.9); EOSINOPHILS % (AUTO) 3.5 % (0-6); HEMATOCRIT 23.5 % (35.0-45.0); LYMPHOCYTES # (AUTO) 1.5 X10'3 (1.1-4.8); LYMPHOCYTES % (AUTO) 24.1 % (21-51); MEAN CORPUSCULAR HEMOGLOBIN 34.4 PG (27.0-31.0); MEAN CORPUSCULAR HGB CONC 38.3 % (33.0-36.5); MEAN CORPUSCULAR VOLUME 89.8 FL (78-98); MEAN PLATELET VOLUME 7.3 FL (7.4-10.4); MONOCYTES # (AUTO) 0.3 X10'3 (0-0.9); MONOCYTES % (AUTO) 4.6 % (2-12); NEUTROPHILS # (AUTO) 4.1 X10'3 (1.8-7.7); NEUTROPHILS % (AUTO) 67.1 % (42-75); PLATELET COUNT 193 X10'3 (140-440); RED BLOOD COUNT 2.62 X10'6 (4.20-5.60); RED CELL DISTRIBUTION WIDTH 18.2 % (11.5-14.5); WHITE BLOOD COUNT 6.1 X10'3 (4.5-11.0)
[2017-11-15 06:00] VITALS: BP 132/60
[2017-11-15 06:28] LABS: ALANINE AMINOTRANSFERASE 9 U/L (12-78); ALBUMIN/GLOBULIN RATIO 0.4 (1.1-1.5); ALKALINE PHOSPHATASE 72 IU/L (46-116); ANION GAP 10 (8-16); ASPARTATE AMINO TRANSFERASE 12 U/L (10-37); BILIRUBIN,TOTAL 0.2 MG/DL (0.1-1.0); BLOOD UREA NITROGEN 63 MG/DL (7-18); BUN/CREATININE RATIO 21.4 (6.6-38.0); CALCIUM 7.7 MG/DL (8.5-10.1); CHLORIDE 102 MMOL/L (99-107); CREATININE 2.94 MG/DL (0.40-0.90); POTASSIUM 3.9 MMOL/L (3.5-5.1); SODIUM 139 MMOL/L (135-145); TOTAL CARBON DIOXIDE 27.4 MMOL/L (24-32); TOTAL PROTEIN 6.7 G/DL (6.4-8.2); eGFR 15 ML/MIN
[2017-11-15 06:30] LABS: GLUCOSE 88 MG/DL (70-104)
[2017-11-15] MEDS ORDERED: AMOX-580 PO (08:04)
[2017-11-15] MEDS ORDERED: ASPI-41 PO (08:04)
[2017-11-15] MEDS: pantoprazole 40mg Tablet.DR PO SCH (08:48)
[2017-11-15] MEDS: amox tr/potassium clavulanate 875/125mg TAB PO SCH (08:48)
[2017-11-15] MEDS: amiodarone 200mg tablet PO SCH (08:49)
[2017-11-15] MEDS: aspirin 325mg tablet, delayed-release (Ecotrin) PO SCH (08:49)
[2017-11-15] MEDS: heparin, porcine 5000 units/ml vial SQ SCH (08:55)
[2017-11-15] MEDS ORDERED: lactobacillus rhamnosus 10,000 MMU CELLS/CAPSULE PO SCH (17:30)
== END 2017-11-15 15:10 | DRG 155 ==
LOC: ER 17:39 → ED HOLD 21:13 → EDBEDREQTM 21:21 → EDBEDREQ 21:44 → ORTHO 4S 22:20
PROVIDERS: ADMIT Internal Medicine; ATTEND Internal Medicine
DX: K11.20 Sialoadenitis, unspecified (principal); N17.9 Acute kidney failure, unspecified; E87.2 Acidosis; N18.4 Chronic kidney disease, stage 4 (severe); I48.0 Paroxysmal atrial fibrillation; R64 Cachexia; M35.00 Sjogren syndrome, unspecified; E86.0 Dehydration; D64.9 Anemia, unspecified; E05.20 Thyrotoxicosis with toxic multinodular goiter without thyrotoxic crisis or storm; Z68.1 Body mass index [BMI] 19.9 or less, adult; F03.90 Unspecified dementia, unspecified severity, without behavioral disturbance, psychotic disturbance, mood disturbance, and anxiety; Z93.2 Ileostomy status; Z88.2 Allergy status to sulfonamides; Z79.899 Other long term (current) drug therapy; Z90.49 Acquired absence of other specified parts of digestive tract; Z85.038 Personal history of other malignant neoplasm of large intestine; Z82.5 Family history of asthma and other chronic lower respiratory diseases
CPT/HCPCS: 36415; 36600; 70450; 70486; 80048; 80053; 80076; 81001; 82570; 82803; 83605; 83735; 84145; 84156; 84300; 84439; 84443; 85018; 85025; 85610; 85730; 87040; 87070; 87207; 96365; 97110; 97116; 97161; 97530; 99285; A4421; A6212; A6213; J1644; J2405; J2543; J3490; J7030

== ENCOUNTER 2017-12-10 15:38 | Inpatient (IN) | payer MEDICARE, MEDICAID ==
[~2017-12-10] VITALS: Ht 167.6 cm; Wt 54.0 kg
[~2017-12-10 15:38] MED LIST changes: +AMOX-580 PO; +ASPI-41 PO; +MAGN400C PO; -NAFCILLIN IV ONE; -NORMAL SALINE IV ONE; +OMEP20TA23 PO; -PANT40TA4 PO; +SODI15OR6 PO
[2017-12-10] MEDS ORDERED: normal saline 1000ml 1,000 ML IV ONE (16:10)
[2017-12-10 16:29] LABS: BASOPHILS # (AUTO) 0.1 X10'3 (0-0.2); BASOPHILS % (AUTO) 1.1 % (0-1); EOSINOPHILS # (AUTO) 0.1 X10'3 (0-0.9); EOSINOPHILS % (AUTO) 0.6 % (0-6); HEMATOCRIT 31.7 % (35.0-45.0); HEMOGLOBIN 11.8 g/dl (12.0-16.0); LYMPHOCYTES # (AUTO) 3.1 X10'3 (1.1-4.8); LYMPHOCYTES % (AUTO) 26.2 % (21-51); MEAN CORPUSCULAR HEMOGLOBIN 33.7 PG (27.0-31.0); MEAN CORPUSCULAR VOLUME 90.9 FL (78-98); MONOCYTES # (AUTO) 0.4 X10'3 (0-0.9); MONOCYTES % (AUTO) 3.5 % (2-12); NEUTROPHILS # (AUTO) 8.1 X10'3 (1.8-7.7); NEUTROPHILS % (AUTO) 68.6 % (42-75); PLATELET COUNT 300 X10'3 (140-440); RED BLOOD COUNT 3.49 X10'6 (4.20-5.60); RED CELL DISTRIBUTION WIDTH 16.4 % (11.5-14.5); WHITE BLOOD COUNT 11.8 X10'3 (4.5-11.0)
[2017-12-10 16:45] LABS: INR 1.1 INR; PARTIAL THROMBOPLASTIN TIME 21 SECONDS (22-32); PROTHROMBIN TIME 11.1 SECONDS (9.0-12.0)
[2017-12-10 16:49] LABS: ALANINE AMINOTRANSFERASE 19 U/L (12-78); ALBUMIN 2.1 G/DL (3.4-5.0); ALBUMIN/GLOBULIN RATIO 0.4 (1.1-1.5); ALKALINE PHOSPHATASE 69 IU/L (46-116); ANION GAP 25 (8-16); ASPARTATE AMINO TRANSFERASE 16 U/L (10-37); BILIRUBIN,TOTAL 0.3 MG/DL (0.1-1.0); BLOOD UREA NITROGEN 67 MG/DL (7-18); BUN/CREATININE RATIO 15.2 (6.6-38.0); CALCIUM 7.4 MG/DL (8.5-10.1); CHLORIDE 109 MMOL/L (99-107); POTASSIUM 4.2 MMOL/L (3.5-5.1); SODIUM 150 MMOL/L (135-145); TOTAL CARBON DIOXIDE 16.1 MMOL/L (24-32); TOTAL PROTEIN 7.8 G/DL (6.4-8.2); eGFR 10 ML/MIN
[2017-12-10 16:51] LABS: GLUCOSE 104 MG/DL (70-104)
[2017-12-10] MEDS ORDERED: cefTRIAXone 1g/NS 100ml IVPB 100 ML IV ONE (17:20)
[2017-12-10 17:46] LABS: COLOR,URINE YELLOW (Yellow); GLUCOSE, URINE NEGATIVE (Neg); KETONES,URINE TRACE mg/dl (Neg); LEUKOCYTE ESTERASE ,URINE TRACE (Neg); NITRITES, URINE NEGATIVE (Neg); OCCULT BLOOD,URINE LARGE (Neg); PH,URINE 5.5 (4.8-8.0); PROTEIN,URINE 30 mg/dl (Neg); UROBILINOGEN,URINE 0.2 E.U/dL (0.2-1.0)
[2017-12-10 17:52] LABS: UA COLLECTION TYPE FOLEY CATH
[2017-12-10] MEDS ORDERED: furosemide 10 MG/1 ML 10ml inj IV ONE (17:55)
[2017-12-10 17:59] LABS: BACTERIA,URINE 2+ /HPF (Neg); RBC,URINE 50-100 /HPF (0-2); SQUAMOUS EPITHELIAL CELL,UR FEW /LPF (FEW)
[2017-12-10 18:00] LABS: AMORPHOUS URATES 3+
[2017-12-10 18:01] LABS: CLARITY,URINE Slightly Cloudy (Clear)
[2017-12-10 18:30] LABS: ABG BASE EXCESS -8.7 mmol/L (-2.0-3.0); ABG HCO3 16.5 mmol/L (22.0-26.0); ABG OXYGEN SATURATION 98.5 % (95-98); ABG PCO2 (T) 32.6 mmHg (32.0-45.0); ABG PH (T) 7.321 (7.350-7.450); ABG PO2 (T) 154.8 mmHg (83-108); FCOHb 0.3 % (0.5-1.5); FLOW 4 L/min; FMetHb 0.2 % (0.3-1.12); PATIENT TEMPERATURE 36.7; RESPIRATORY RATE (OBSERVED) 20 b/min; TOTAL HEMOGLOBIN 10.9 G/dl (12.0-16.0)
[2017-12-10] MEDS ORDERED: nitroGLYCERIN-Tridil 50MG/D5W 250 ML IV ONE (18:35)
[2017-12-10] MEDS ORDERED: DULO-31 PO (21:44)
[2017-12-10] MEDS ORDERED: ONDA4TAB9 SL (21:44)
[2017-12-10] MEDS ORDERED: HYDR-569 PO (21:44)
[2017-12-10] MEDS ORDERED: ACET-2119 PO (22:03)
[2017-12-10] MEDS ORDERED: SODI650T29 PO (22:03)
[2017-12-10] MEDS ORDERED: CYAN1TAB18 (22:03)
[2017-12-11] MEDS ORDERED: magnesium hydroxide 30ml (MOM) UD suspension PO PRN (04:50)
[2017-12-11] MEDS ORDERED: magnesium 2GM in 50ml NS 50 ML IV PRN (04:50)
[2017-12-11] MEDS ORDERED: morphine 4 MG/ML inj SYRINge IV PRN ×2 (04:50)
[2017-12-11] MEDS ORDERED: magnesium 4gm in 100ml NS 100 ML IV PRN (04:50)
[2017-12-11] MEDS ORDERED: mag hydrox/Alum hydrox/simeth 30ml oral suspension PO PRN (04:50)
[2017-12-11] MEDS ORDERED: ondansetron/PF 4mg/2ml inj IV PRN (04:50)
[2017-12-11] MEDS ORDERED: magnesium Cl slow-release 64mg tablet PO PRN (04:50)
[2017-12-11] MEDS ORDERED: albuterol 2.5 MG/3 ML nebule NEB PRN (04:50)
[2017-12-11] MEDS ORDERED: potassium Cl 40MEQ/NS 500ml 500 ML IV PRN ×2 (04:50)
[2017-12-11] MEDS ORDERED: acetaminophen 325mg tablet PO PRN (04:50)
[2017-12-11] MEDS ORDERED: potassium Cl 20 mEq SR tablet PO PRN ×2 (04:50)
[2017-12-11] MEDS ORDERED: heparin 10,000 units/1 ML INJ IV PRN ×2 (05:00→07:02)
[2017-12-11] MEDS ORDERED: heparin 10,000 units/1 ML INJ IV ONE (05:00)
[2017-12-11] MEDS: normal saline 1000ml 1,000 ML IV SCH ×2 (06:24→18:40)
[2017-12-11] MEDS ORDERED: normal saline 250ml IV soln 250 ML IV ONE (06:50)
[2017-12-11] MEDS: pantoprazole 40mg Tablet.DR PO SCH (07:14)
[2017-12-11] MEDS: amiodarone 200mg tablet PO SCH ×2 (07:14→20:41)
[2017-12-11] MEDS: nitroGLYCERIN 0.4mg/hour patch TD SCH (08:00)
[2017-12-11] MEDS ORDERED: SODIUM POLYSTYRENE SULFONATE 30 GM PO SCH (08:00)
[2017-12-11] MEDS: duloxetine 30mg CAPSULE.DR PO SCH (08:00)
[2017-12-11] MEDS: K and/or MAG REPLACEMENT MC SCH (08:00)
[2017-12-11] MEDS: cefTRIAXone 1g/NS 100ml IVPB 100 ML IV SCH (08:07)
[2017-12-11] MEDS: magnesium oxide 400mg tablet PO SCH ×2 (09:08→20:41)
[2017-12-11] MEDS: multivitamins, therapeutics tablet PO SCH (09:08)
[2017-12-11 09:10] LABS: ALBUMIN 1.9 G/DL (3.4-5.0); ANION GAP 22 (8-16); BLOOD UREA NITROGEN 63 MG/DL (7-18); BUN/CREATININE RATIO 13.8 (6.6-38.0); CALCIUM 7.3 MG/DL (8.5-10.1); CHLORIDE 110 MMOL/L (99-107); CREATININE 4.57 MG/DL (0.40-0.90); POTASSIUM 3.8 MMOL/L (3.5-5.1); SODIUM 151 MMOL/L (135-145); TOTAL CARBON DIOXIDE 19.4 MMOL/L (24-32); eGFR 9 ML/MIN
[2017-12-11 09:12] LABS: GLUCOSE 100 MG/DL (70-104)
[2017-12-11] MEDS: aspirin 325mg tablet, delayed-release (Ecotrin) PO SCH (09:50)
[2017-12-11] MEDS ORDERED: MAGN64TA13 (12:09)
[2017-12-11] MEDS ORDERED: VIT1TABL48 PO (12:09)
[2017-12-11 14:15] VITALS: BP 118/74
[2017-12-11 14:35] VITALS: BP 92/39
[2017-12-11] MEDS ORDERED: LORazepam 2 mg/ml vial IM ONE (17:25)
[2017-12-11] MEDS: methylPREDNISolone sod succ 125mg/2ml vial IV SCH (17:58)
[2017-12-11] MEDS ORDERED: LORazepam 2 mg/ml vial IV ONE (18:00)
[2017-12-11] MEDS ORDERED: furosemide 10 MG/1 ML 10ml inj IV ONE (20:30)
[2017-12-11] MEDS: lactobacillus rhamnosus 10,000 MMU CELLS/CAPSULE PO SCH (20:41)
[2017-12-11] MEDS: heparin, porcine 5000 units/ml vial SQ SCH (20:41)
[2017-12-11] MEDS ORDERED: temazepam 15mg capsule PO PRN (21:00)
[2017-12-11 22:20] LABS: ALANINE AMINOTRANSFERASE 15 U/L (12-78); ALBUMIN 1.7 G/DL (3.4-5.0); ALBUMIN/GLOBULIN RATIO 0.3 (1.1-1.5); ALKALINE PHOSPHATASE 61 IU/L (46-116); ANION GAP 23 (8-16); ASPARTATE AMINO TRANSFERASE 12 U/L (10-37); BILIRUBIN,TOTAL 0.3 MG/DL (0.1-1.0); BLOOD UREA NITROGEN 69 MG/DL (7-18); BUN/CREATININE RATIO 14.9 (6.6-38.0); CALCIUM 7.3 MG/DL (8.5-10.1); CHLORIDE 111 MMOL/L (99-107); CREATININE 4.62 MG/DL (0.40-0.90); POTASSIUM 3.9 MMOL/L (3.5-5.1); SODIUM 153 MMOL/L (135-145); TOTAL CARBON DIOXIDE 18.6 MMOL/L (24-32); TOTAL PROTEIN 7.2 G/DL (6.4-8.2); eGFR 9 ML/MIN
[2017-12-11 22:24] LABS: GLUCOSE 101 MG/DL (70-104)
[2017-12-12] MEDS ORDERED: methylPREDNISolone sod succ 125mg/2ml vial IV ONE
[2017-12-12] MEDS: methylPREDNISolone sod succ 125mg/2ml vial IV SCH ×3 (00:44→16:06)
[2017-12-12 07:29] LABS: HEMATOCRIT 34.3 % (35.0-45.0); HEMOGLOBIN 12.4 g/dl (12.0-16.0); MEAN CORPUSCULAR HEMOGLOBIN 32.9 PG (27.0-31.0); MEAN CORPUSCULAR HGB CONC 36.1 % (33.0-36.5); MEAN CORPUSCULAR VOLUME 91.2 FL (78-98); MEAN PLATELET VOLUME 7.2 FL (7.4-10.4); PLATELET COUNT 235 X10'3 (140-440); RED BLOOD COUNT 3.76 X10'6 (4.20-5.60); RED CELL DISTRIBUTION WIDTH 16.8 % (11.5-14.5); WHITE BLOOD COUNT 14.9 X10'3 (4.5-11.0)
[2017-12-12] MEDS: magnesium oxide 400mg tablet PO SCH ×2 (08:00→20:41)
[2017-12-12] MEDS: K and/or MAG REPLACEMENT MC SCH (08:00)
[2017-12-12] MEDS: nitroGLYCERIN 0.4mg/hour patch TD SCH (08:00)
[2017-12-12] MEDS: multivitamins, therapeutics tablet PO SCH (08:00)
[2017-12-12 08:03] LABS: ALANINE AMINOTRANSFERASE 17 U/L (12-78); ALBUMIN 1.8 G/DL (3.4-5.0); ALBUMIN/GLOBULIN RATIO 0.3 (1.1-1.5); ALKALINE PHOSPHATASE 60 IU/L (46-116); ANION GAP 27 (8-16); ASPARTATE AMINO TRANSFERASE 11 U/L (10-37); BILIRUBIN,TOTAL 0.3 MG/DL (0.1-1.0); BLOOD UREA NITROGEN 70 MG/DL (7-18); BUN/CREATININE RATIO 15.1 (6.6-38.0); CALCIUM 7.5 MG/DL (8.5-10.1); CHLORIDE 111 MMOL/L (99-107); CREATININE 4.65 MG/DL (0.40-0.90); MAGNESIUM 2.1 MG/DL (1.5-2.4); POTASSIUM 4.1 MMOL/L (3.5-5.1); SODIUM 154 MMOL/L (135-145); TOTAL CARBON DIOXIDE 16.2 MMOL/L (24-32); TOTAL PROTEIN 7.4 G/DL (6.4-8.2); eGFR 9 ML/MIN
[2017-12-12 08:05] LABS: GLUCOSE 116 MG/DL (70-104)
[2017-12-12 08:08] LABS: PLATELET ESTIMATE NORMAL; SMUDGE CELLS 1+; TOTAL CELLS COUNTED 100
[2017-12-12 08:09] LABS: ROULEAUX 1+
[2017-12-12 08:18] LABS: ANISOCYTOSIS 1+; BURR CELLS 1+; ELLIPTOCYTES 1+; POLYCHROMASIA FEW; SPHEROCYTES 2+; TEAR DROP CELLS 1+
[2017-12-12] MEDS: amiodarone 200mg tablet PO SCH ×2 (08:36→20:40)
[2017-12-12] MEDS: heparin, porcine 5000 units/ml vial SQ SCH ×2 (08:36→20:42)
[2017-12-12] MEDS: aspirin 325mg tablet, delayed-release (Ecotrin) PO SCH (08:36)
[2017-12-12] MEDS: cefTRIAXone 1g/NS 100ml IVPB 100 ML IV SCH (08:37)
[2017-12-12] MEDS: lactobacillus rhamnosus 10,000 MMU CELLS/CAPSULE PO SCH ×2 (08:42→20:41)
[2017-12-12] MEDS: pantoprazole 40mg Tablet.DR PO SCH (08:42)
[2017-12-12] MEDS: duloxetine 30mg CAPSULE.DR PO SCH (08:58)
[2017-12-12] MEDS ORDERED: furosemide 40mg/4ml inj IV ONE (09:05)
[2017-12-12 09:45] VITALS: BP 114/60
[2017-12-12] MEDS: sodium bicarbonate (8.4%) inj. 100 MEQ in dextrose 5%-water 1,000 ML IV SCH ×2 (11:14→21:29)
[2017-12-12] MEDS ORDERED: levoFLOXACIN-Levaquin 500mg/D5 100 ML IV SCH (13:50)
[2017-12-12 15:30] VITALS: BP 107/59
[2017-12-12] MEDS ORDERED: carVEDilol 3.125mg tablet PO SCH (15:50)
[2017-12-12 18:00] VITALS: BP 91/54
[2017-12-12] MEDS: carVEDilol 3.125mg tablet PO SCH (20:41)
[2017-12-12 22:00] VITALS: BP 83/48
[2017-12-13] VITALS (17 sets, daily range): BP systolic 66–107; BP diastolic 33–62
[2017-12-13] MEDS: methylPREDNISolone sod succ 125mg/2ml vial IV SCH ×3 (00:37→16:13)
[2017-12-13] MEDS ORDERED: albumin (Human) 5% 250 ML IV solution IV STA (03:00)
[2017-12-13] MEDS ORDERED: albumin (Human) 5% 250ml 250 ML IV ONE ×2 (03:06→03:10)
[2017-12-13 06:22] LABS: BASOPHILS % (AUTO) 0.2 % (0-1); EOSINOPHILS # (AUTO) 0.1 X10'3 (0-0.9); EOSINOPHILS % (AUTO) 0.9 % (0-6); HEMATOCRIT 25.3 % (35.0-45.0); HEMOGLOBIN 9.3 g/dl (12.0-16.0); LYMPHOCYTES # (AUTO) 1.2 X10'3 (1.1-4.8); LYMPHOCYTES % (AUTO) 9.3 % (21-51); MEAN CORPUSCULAR HEMOGLOBIN 33.4 PG (27.0-31.0); MEAN CORPUSCULAR HGB CONC 36.7 % (33.0-36.5); MEAN CORPUSCULAR VOLUME 90.9 FL (78-98); MEAN PLATELET VOLUME 7.5 FL (7.4-10.4); MONOCYTES # (AUTO) 0.1 X10'3 (0-0.9); MONOCYTES % (AUTO) 0.7 % (2-12); NEUTROPHILS # (AUTO) 11.5 X10'3 (1.8-7.7); NEUTROPHILS % (AUTO) 88.9 % (42-75); PLATELET COUNT 136 X10'3 (140-440); RED BLOOD COUNT 2.79 X10'6 (4.20-5.60); RED CELL DISTRIBUTION WIDTH 16.4 % (11.5-14.5); WHITE BLOOD COUNT 12.9 X10'3 (4.5-11.0)
[2017-12-13 06:36] LABS: ALANINE AMINOTRANSFERASE 13 U/L (12-78); ALBUMIN 2.1 G/DL (3.4-5.0); ALBUMIN/GLOBULIN RATIO 0.5 (1.1-1.5); ALKALINE PHOSPHATASE 43 IU/L (46-116); ANION GAP 14 (8-16); ASPARTATE AMINO TRANSFERASE 7 U/L (10-37); BILIRUBIN,TOTAL 0.2 MG/DL (0.1-1.0); BLOOD UREA NITROGEN 73 MG/DL (7-18); CHLORIDE 106 MMOL/L (99-107); CREATININE 4.87 MG/DL (0.40-0.90); MAGNESIUM 2.1 MG/DL (1.5-2.4); POTASSIUM 4.2 MMOL/L (3.5-5.1); SODIUM 146 MMOL/L (135-145); TOTAL CARBON DIOXIDE 25.6 MMOL/L (24-32); TOTAL PROTEIN 6.6 G/DL (6.4-8.2); eGFR 9 ML/MIN
[2017-12-13] MEDS: carVEDilol 3.125mg tablet PO SCH ×2 (06:39→20:00)
[2017-12-13 06:40] LABS: GLUCOSE 236 MG/DL (70-104)
[2017-12-13 07:20] LABS: ANISOCYTOSIS 1+; PLATELET ESTIMATE DECREASED; SPHEROCYTES 2+
[2017-12-13 07:21] LABS: ELLIPTOCYTES FEW; TEAR DROP CELLS FEW
[2017-12-13] MEDS: K and/or MAG REPLACEMENT MC SCH (08:00)
[2017-12-13] MEDS: nitroGLYCERIN 0.4mg/hour patch TD SCH (08:00)
[2017-12-13] MEDS: heparin, porcine 5000 units/ml vial SQ SCH ×2 (08:28→20:38)
[2017-12-13] MEDS: duloxetine 30mg CAPSULE.DR PO SCH (08:29)
[2017-12-13] MEDS: aspirin 325mg tablet, delayed-release (Ecotrin) PO SCH (08:29)
[2017-12-13] MEDS: amiodarone 200mg tablet PO SCH ×2 (08:29→20:37)
[2017-12-13] MEDS: multivitamins, therapeutics tablet PO SCH (08:29)
[2017-12-13] MEDS: magnesium oxide 400mg tablet PO SCH ×2 (08:29→20:37)
[2017-12-13] MEDS: lactobacillus rhamnosus 10,000 MMU CELLS/CAPSULE PO SCH ×2 (08:31→20:37)
[2017-12-13] MEDS: pantoprazole 40mg Tablet.DR PO SCH (08:31)
[2017-12-13] MEDS: sodium bicarbonate (8.4%) inj. 100 MEQ in dextrose 5%-water 1,000 ML IV SCH (08:33)
[2017-12-13 13:36] LABS: C DIFF ANTIGEN NEGATIVE (NEGATIVE); C DIFF SPECIMEN=DIARRHEA? ACCEPTABLE; C DIFFICILE TOXINS A&B NEGATIVE (Neg)
[2017-12-13] MEDS: ampicillin inj 2 GM in normal saline 100ml IV soln 100 ML IV SCH ×2 (15:56→20:46)
[2017-12-13] MEDS: normal saline 1000ml 1,000 ML IV SCH (18:23)
[2017-12-14] VITALS (7 sets, daily range): BP systolic 90–122; BP diastolic 53–74
[2017-12-14] MEDS: methylPREDNISolone sod succ 125mg/2ml vial IV SCH ×4 (00:15→23:34)
[2017-12-14 05:51] LABS: BASOPHILS # (AUTO) 0.1 X10'3 (0-0.2); BASOPHILS % (AUTO) 0.7 % (0-1); EOSINOPHILS # (AUTO) 0.1 X10'3 (0-0.9); HEMATOCRIT 27.1 % (35.0-45.0); HEMOGLOBIN 10.1 g/dl (12.0-16.0); LYMPHOCYTES # (AUTO) 1.2 X10'3 (1.1-4.8); LYMPHOCYTES % (AUTO) 9.7 % (21-51); MEAN CORPUSCULAR HEMOGLOBIN 33.9 PG (27.0-31.0); MEAN CORPUSCULAR HGB CONC 37.3 % (33.0-36.5); MEAN CORPUSCULAR VOLUME 90.9 FL (78-98); MEAN PLATELET VOLUME 8.9 FL (7.4-10.4); MONOCYTES # (AUTO) 0.1 X10'3 (0-0.9); MONOCYTES % (AUTO) 0.8 % (2-12); NEUTROPHILS # (AUTO) 10.8 X10'3 (1.8-7.7); NEUTROPHILS % (AUTO) 87.8 % (42-75); PLATELET COUNT 137 X10'3 (140-440); RED BLOOD COUNT 2.98 X10'6 (4.20-5.60); RED CELL DISTRIBUTION WIDTH 16.3 % (11.5-14.5); WHITE BLOOD COUNT 12.4 X10'3 (4.5-11.0)
[2017-12-14 06:50] LABS: ANISOCYTOSIS 1+; ELLIPTOCYTES FEW; PLATELET ESTIMATE DECREASED; SPHEROCYTES 2+; TEAR DROP CELLS FEW
[2017-12-14 07:21] LABS: ALANINE AMINOTRANSFERASE 16 U/L (12-78); ALBUMIN 2.1 G/DL (3.4-5.0); ALBUMIN/GLOBULIN RATIO 0.4 (1.1-1.5); ALKALINE PHOSPHATASE 51 IU/L (46-116); ANION GAP 12 (8-16); ASPARTATE AMINO TRANSFERASE 7 U/L (10-37); BILIRUBIN,TOTAL 0.2 MG/DL (0.1-1.0); BLOOD UREA NITROGEN 73 MG/DL (7-18); BUN/CREATININE RATIO 15.7 (6.6-38.0); CALCIUM 7.3 MG/DL (8.5-10.1); CHLORIDE 104 MMOL/L (99-107); CREATININE 4.65 MG/DL (0.40-0.90); POTASSIUM 3.9 MMOL/L (3.5-5.1); SODIUM 143 MMOL/L (135-145); TOTAL PROTEIN 6.8 G/DL (6.4-8.2); eGFR 9 ML/MIN
[2017-12-14 07:22] LABS: GLUCOSE 155 MG/DL (70-104)
[2017-12-14] MEDS: amiodarone 200mg tablet PO SCH ×2 (07:46→21:03)
[2017-12-14] MEDS: pantoprazole 40mg Tablet.DR PO SCH (07:47)
[2017-12-14] MEDS: carVEDilol 3.125mg tablet PO SCH ×2 (07:47→21:02)
[2017-12-14] MEDS: duloxetine 30mg CAPSULE.DR PO SCH (07:47)
[2017-12-14] MEDS: lactobacillus rhamnosus 10,000 MMU CELLS/CAPSULE PO SCH ×2 (07:47→21:03)
[2017-12-14] MEDS: aspirin 325mg tablet, delayed-release (Ecotrin) PO SCH (07:47)
[2017-12-14] MEDS: multivitamins, therapeutics tablet PO SCH (07:47)
[2017-12-14] MEDS: magnesium oxide 400mg tablet PO SCH ×2 (07:47→21:03)
[2017-12-14] MEDS: heparin, porcine 5000 units/ml vial SQ SCH ×2 (07:47→21:06)
[2017-12-14] MEDS: ampicillin inj 2 GM in normal saline 100ml IV soln 100 ML IV SCH ×2 (07:55→21:02)
[2017-12-14] MEDS: nitroGLYCERIN 0.4mg/hour patch TD SCH (08:00)
[2017-12-14] MEDS: K and/or MAG REPLACEMENT MC SCH (08:00)
[2017-12-14] MEDS: normal saline 1000ml 1,000 ML IV SCH (10:20)
[2017-12-14] MEDS: levoFLOXACIN 500mg tablet PO SCH (10:49)
[2017-12-14] MEDS ORDERED: fentaNYL/PF 50MCG/1 ML 2ML syringe ONE (15:41)
[2017-12-14] MEDS ORDERED: heparin 1,000unit/ml 10ml vial 10 ML ONE (15:42)
[2017-12-14] MEDS ORDERED: gelatin sponge, absorbable (Gelfoam 12-7MM) sponge TP ONE (16:19)
[2017-12-15 03:00] VITALS: BP 99/55
[2017-12-15] MEDS: normal saline 1000ml 1,000 ML IV SCH ×2 (03:20→12:04)
[2017-12-15 05:18] LABS: BASOPHILS % (AUTO) 0.3 % (0-1); EOSINOPHILS # (AUTO) 0.1 X10'3 (0-0.9); EOSINOPHILS % (AUTO) 1.6 % (0-6); HEMATOCRIT 24.1 % (35.0-45.0); HEMOGLOBIN 9.1 g/dl (12.0-16.0); LYMPHOCYTES # (AUTO) 1.2 X10'3 (1.1-4.8); LYMPHOCYTES % (AUTO) 16.3 % (21-51); MEAN CORPUSCULAR HEMOGLOBIN 34.1 PG (27.0-31.0); MEAN CORPUSCULAR HGB CONC 37.9 % (33.0-36.5); MEAN CORPUSCULAR VOLUME 90.1 FL (78-98); MEAN PLATELET VOLUME 7.6 FL (7.4-10.4); MONOCYTES # (AUTO) 0.1 X10'3 (0-0.9); MONOCYTES % (AUTO) 1.4 % (2-12); NEUTROPHILS # (AUTO) 6.2 X10'3 (1.8-7.7); NEUTROPHILS % (AUTO) 80.4 % (42-75); PLATELET COUNT 117 X10'3 (140-440); RED BLOOD COUNT 2.68 X10'6 (4.20-5.60); RED CELL DISTRIBUTION WIDTH 15.8 % (11.5-14.5); WHITE BLOOD COUNT 7.7 X10'3 (4.5-11.0)
[2017-12-15 05:24] LABS: ALANINE AMINOTRANSFERASE 19 U/L (12-78); ALBUMIN 1.9 G/DL (3.4-5.0); ALBUMIN/GLOBULIN RATIO 0.4 (1.1-1.5); ALKALINE PHOSPHATASE 49 IU/L (46-116); ANION GAP 13 (8-16); ASPARTATE AMINO TRANSFERASE 11 U/L (10-37); BILIRUBIN,TOTAL 0.2 MG/DL (0.1-1.0); BLOOD UREA NITROGEN 79 MG/DL (7-18); BUN/CREATININE RATIO 16.7 (6.6-38.0); CALCIUM 7.3 MG/DL (8.5-10.1); CHLORIDE 104 MMOL/L (99-107); CREATININE 4.73 MG/DL (0.40-0.90); GLUCOSE 147 MG/DL (70-104); SODIUM 141 MMOL/L (135-145); TOTAL CARBON DIOXIDE 23.6 MMOL/L (24-32); TOTAL PROTEIN 6.5 G/DL (6.4-8.2); eGFR 9 ML/MIN
[2017-12-15 06:00] VITALS: BP 118/65
[2017-12-15 06:50] LABS: PLATELET ESTIMATE DECREASED
[2017-12-15 06:51] LABS: SPHEROCYTES 2+
[2017-12-15] MEDS ORDERED: heparin 1,000 units/ml 10ml inj HE ONE ×2 (08:00)
[2017-12-15] MEDS ORDERED: epoetin 20,000 units/ml inj IV ONE (08:00)
[2017-12-15] MEDS ORDERED: heparin 1,000unit/ml 10ml vial 10 ML IV ONE (08:00)
[2017-12-15] MEDS ORDERED: heparin 1,000 units/ml 10ml inj IV ONE (08:00)
[2017-12-15] MEDS: K and/or MAG REPLACEMENT MC SCH (08:00)
[2017-12-15] MEDS ORDERED: albumin (human) 25% 100ml IV 100 ML IV PRN (08:00)
[2017-12-15] MEDS: multivitamins, therapeutics tablet PO SCH (08:09)
[2017-12-15] MEDS: lactobacillus rhamnosus 10,000 MMU CELLS/CAPSULE PO SCH ×2 (08:09→20:45)
[2017-12-15] MEDS: aspirin 325mg tablet, delayed-release (Ecotrin) PO SCH (08:09)
[2017-12-15] MEDS: pantoprazole 40mg Tablet.DR PO SCH (08:09)
[2017-12-15] MEDS: magnesium oxide 400mg tablet PO SCH ×2 (08:09→20:45)
[2017-12-15] MEDS: amiodarone 200mg tablet PO SCH ×2 (08:09→20:45)
[2017-12-15] MEDS: duloxetine 30mg CAPSULE.DR PO SCH (08:09)
[2017-12-15] MEDS: heparin, porcine 5000 units/ml vial SQ SCH ×2 (08:10→20:45)
[2017-12-15] MEDS: methylPREDNISolone sod succ 125mg/2ml vial IV SCH ×2 (08:10→16:34)
[2017-12-15 11:00] VITALS: BP 113/68
[2017-12-15] MEDS: ampicillin inj 2 GM in normal saline 100ml IV soln 100 ML IV SCH ×2 (12:00→20:45)
[2017-12-15] MEDS: nitroGLYCERIN 0.4mg/hour patch TD SCH (12:00)
[2017-12-15] MEDS: carVEDilol 3.125mg tablet PO SCH ×2 (12:00→20:46)
[2017-12-15 17:53] VITALS: BP 109/62
[2017-12-15 19:00] VITALS: BP 112/67
[2017-12-15 23:00] VITALS: BP 109/64
[2017-12-16] MEDS: methylPREDNISolone sod succ 125mg/2ml vial IV SCH ×3 (00:17→15:33)
[2017-12-16 03:00] VITALS: BP 109/62
[2017-12-16 05:30] VITALS: BP 115/67
[2017-12-16 05:54] LABS: BASOPHILS % (AUTO) 0.4 % (0-1); EOSINOPHILS % (AUTO) 0.4 % (0-6); HEMATOCRIT 25.9 % (35.0-45.0); LYMPHOCYTES # (AUTO) 1.9 X10'3 (1.1-4.8); LYMPHOCYTES % (AUTO) 28.1 % (21-51); MEAN CORPUSCULAR HEMOGLOBIN 34.2 PG (27.0-31.0); MEAN CORPUSCULAR HGB CONC 38.7 % (33.0-36.5); MEAN CORPUSCULAR VOLUME 88.3 FL (78-98); MEAN PLATELET VOLUME 7.6 FL (7.4-10.4); MONOCYTES # (AUTO) 0.1 X10'3 (0-0.9); MONOCYTES % (AUTO) 1.9 % (2-12); NEUTROPHILS # (AUTO) 4.7 X10'3 (1.8-7.7); NEUTROPHILS % (AUTO) 69.2 % (42-75); PLATELET COUNT 112 X10'3 (140-440); RED BLOOD COUNT 2.93 X10'6 (4.20-5.60); RED CELL DISTRIBUTION WIDTH 15.8 % (11.5-14.5); WHITE BLOOD COUNT 6.7 X10'3 (4.5-11.0)
[2017-12-16 06:07] LABS: ALANINE AMINOTRANSFERASE 23 U/L (12-78); ALBUMIN 1.9 G/DL (3.4-5.0); ALKALINE PHOSPHATASE 61 IU/L (46-116); ANION GAP 12 (8-16); CALCIUM 7.9 MG/DL (8.5-10.1); CHLORIDE 102 MMOL/L (99-107); CREATININE 3.52 MG/DL (0.40-0.90); MAGNESIUM 1.9 MG/DL (1.5-2.4); POTASSIUM 4.2 MMOL/L (3.5-5.1); SODIUM 139 MMOL/L (135-145); TOTAL CARBON DIOXIDE 24.8 MMOL/L (24-32); eGFR 12 ML/MIN
[2017-12-16 06:09] LABS: ALBUMIN/GLOBULIN RATIO 0.4 (1.1-1.5); ASPARTATE AMINO TRANSFERASE 15 U/L (10-37); BILIRUBIN,TOTAL 0.3 MG/DL (0.1-1.0); BLOOD UREA NITROGEN 51 MG/DL (7-18); BUN/CREATININE RATIO 14.5 (6.6-38.0); GLUCOSE 126 MG/DL (70-104)
[2017-12-16 07:36] LABS: ANISOCYTOSIS 1+; PLATELET ESTIMATE DECREASED; SPHEROCYTES 2+
[2017-12-16 07:37] LABS: ELLIPTOCYTES FEW; SCHISTOCYTES FEW; TEAR DROP CELLS FEW
[2017-12-16] MEDS: K and/or MAG REPLACEMENT MC SCH (08:00)
[2017-12-16] MEDS: ampicillin inj 2 GM in normal saline 100ml IV soln 100 ML IV SCH (08:19)
[2017-12-16] MEDS: multivitamins, therapeutics tablet PO SCH (08:25)
[2017-12-16] MEDS: carVEDilol 3.125mg tablet PO SCH (08:26)
[2017-12-16] MEDS: magnesium oxide 400mg tablet PO SCH (08:26)
[2017-12-16] MEDS: lactobacillus rhamnosus 10,000 MMU CELLS/CAPSULE PO SCH (08:26)
[2017-12-16] MEDS: aspirin 325mg tablet, delayed-release (Ecotrin) PO SCH (08:26)
[2017-12-16] MEDS: amiodarone 200mg tablet PO SCH (08:26)
[2017-12-16] MEDS: duloxetine 30mg CAPSULE.DR PO SCH (08:26)
[2017-12-16] MEDS: pantoprazole 40mg Tablet.DR PO SCH (08:26)
[2017-12-16] MEDS: heparin, porcine 5000 units/ml vial SQ SCH (08:27)
[2017-12-16] MEDS: nitroGLYCERIN 0.4mg/hour patch TD SCH (08:29)
[2017-12-16] MEDS ORDERED: epoetin 20,000 units/ml inj IV ONE (10:00)
[2017-12-16] MEDS ORDERED: heparin 1,000unit/ml 10ml vial 10 ML IV ONE (10:00)
[2017-12-16] MEDS ORDERED: heparin 1,000 units/ml 10ml inj IV ONE (10:00)
[2017-12-16] MEDS ORDERED: albumin (human) 25% 100ml IV 100 ML IV PRN (10:00)
[2017-12-16] MEDS ORDERED: heparin 1,000 units/ml 10ml inj HE ONE ×2 (10:05)
[2017-12-16] MEDS: levoFLOXACIN 500mg tablet PO SCH (10:51)
[2017-12-16 11:00] VITALS: BP 128/72
[2017-12-16 13:28] LABS: HBSAG SCREEN Negative (Negative)
[2017-12-16] MEDS ORDERED: azithromycin/NS 500mg/250ml 250 ML IV ONE (14:10)
[2017-12-16] MEDS ORDERED: cefTRIAXone 1g/NS 100ml IVPB 100 ML IV SCH (14:10)
[2017-12-16 15:00] VITALS: BP 114/70
== END 2017-12-16 17:15 | DRG 673 ==
LOC: ER 15:39 → ED HOLD 12-11 04:50 → EDBEDREQ 12-12 09:00 → PCU 3S 12-12 09:57
PROVIDERS: ADMIT Internal Medicine; ATTEND Internal Medicine
PROC: 0W9B3ZZ Drainage of Left Pleural Cavity, Percutaneous Approach (ICD-10-PCS; principal; 2017-12-11)
PROC: 0W993ZZ Drainage of Right Pleural Cavity, Percutaneous Approach (ICD-10-PCS; 2017-12-11)
PROC: 0JH63XZ Insertion of Tunneled Vascular Access Device into Chest Subcutaneous Tissue and Fascia, Percutaneous Approach (ICD-10-PCS; 2017-12-14)
PROC: 02H633Z Insertion of Infusion Device into Right Atrium, Percutaneous Approach (ICD-10-PCS; 2017-12-14)
PROC: B244ZZZ Ultrasonography of Right Heart (ICD-10-PCS; 2017-12-14)
PROC: 5A1D70Z Performance of Urinary Filtration, Intermittent, Less than 6 Hours Per Day (ICD-10-PCS; 2017-12-14)
PROC: 5A1D70Z Performance of Urinary Filtration, Intermittent, Less than 6 Hours Per Day (ICD-10-PCS; 2017-12-16)
DX: N17.9 Acute kidney failure, unspecified (principal); J96.01 Acute respiratory failure with hypoxia; E41 Nutritional marasmus; I50.21 Acute systolic (congestive) heart failure; J90 Pleural effusion, not elsewhere classified; E87.2 Acidosis; E87.0 Hyperosmolality and hypernatremia; M35.00 Sjogren syndrome, unspecified; I48.91 Unspecified atrial fibrillation; Z68.1 Body mass index [BMI] 19.9 or less, adult; J44.1 Chronic obstructive pulmonary disease with (acute) exacerbation; N39.0 Urinary tract infection, site not specified; N18.4 Chronic kidney disease, stage 4 (severe); E05.90 Thyrotoxicosis, unspecified without thyrotoxic crisis or storm; R19.7 Diarrhea, unspecified; K21.9 Gastro-esophageal reflux disease without esophagitis; D64.9 Anemia, unspecified; F03.90 Unspecified dementia, unspecified severity, without behavioral disturbance, psychotic disturbance, mood disturbance, and anxiety; Z60.2 Problems related to living alone; Z99.2 Dependence on renal dialysis; Z93.2 Ileostomy status; Z90.710 Acquired absence of both cervix and uterus; Z88.2 Allergy status to sulfonamides; Z79.899 Other long term (current) drug therapy; Z85.038 Personal history of other malignant neoplasm of large intestine; Z87.440 Personal history of urinary (tract) infections; Z82.5 Family history of asthma and other chronic lower respiratory diseases
CPT/HCPCS: 32555; 36415; 36558; 36600; 71045; 76937; 77001; 80048; 80053; 81001; 82803; 83605; 83735; 83880; 84145; 84295; 84439; 84443; 84484; 85018; 85025; 85610; 85730; 87040; 87070; 87077; 87088; 87186; 87324; 87340; 87449; 93005; 93306; 94640; 94760; 96365; 96375; 99285; A4421; A4620; A6212; A6213; A6257; C1750; C1894; G0257; J0290; J0456; J0696; J0885; J1644; J1940; J1956; J2060; J2930; J3010; J3490; J7030; P9045

== ENCOUNTER 2017-12-26 18:02 | Inpatient (IN) | payer MEDICARE, MEDICAID ==
[~2017-12-26] VITALS: Ht 167.6 cm; Wt 60.7 kg
[~2017-12-26 18:02] MED LIST changes: +ACET-2119 PO; -AMOX-580 PO; +CYAN1TAB18; +DULO-31 PO; +HYDR-569 PO; -MAGN400C PO; +MAGN64TA13; -MULT-933 PO; +ONDA4TAB9 SL; +SODI650T29 PO; +VIT1TABL48 PO; +etomidate 2mg/ml inj. ONE; +sodium chloride 0.9% 10ml vial - diluent IJ ONE
[2017-12-26 19:53] LABS: INR 1.1 INR; PARTIAL THROMBOPLASTIN TIME 35 SECONDS (22-32)
[2017-12-26 20:01] LABS: HEMOGLOBIN 11.9 g/dl (12.0-16.0); LYMPHOCYTES # (AUTO) 1.5 X10'3 (1.1-4.8); PLATELET COUNT 58 X10'3 (140-440)
[2017-12-26 20:04] LABS: ALANINE AMINOTRANSFERASE 32 U/L (12-78); ALBUMIN 1.4 G/DL (3.4-5.0); ALBUMIN/GLOBULIN RATIO 0.2 (1.1-1.5); ALKALINE PHOSPHATASE 52 IU/L (46-116); ANION GAP 9 (8-16); ASPARTATE AMINO TRANSFERASE 18 U/L (10-37); BILIRUBIN,TOTAL 0.3 MG/DL (0.1-1.0); BLOOD UREA NITROGEN 35 MG/DL (7-18); BUN/CREATININE RATIO 15.1 (6.6-38.0); CALCIUM 7.9 MG/DL (8.5-10.1); CHLORIDE 100 MMOL/L (99-107); CREATININE 2.32 MG/DL (0.40-0.90); POTASSIUM 4.6 MMOL/L (3.5-5.1); SODIUM 137 MMOL/L (135-145); TOTAL CARBON DIOXIDE 27.9 MMOL/L (24-32); TOTAL PROTEIN 7.7 G/DL (6.4-8.2); eGFR 20 ML/MIN
[2017-12-26 20:09] LABS: GLUCOSE 84 MG/DL (70-104)
[2017-12-26 20:42] LABS: BASOPHILS % (AUTO) 0.1 % (0-1); EOSINOPHILS # (AUTO) 0.1 X10'3 (0-0.9); EOSINOPHILS % (AUTO) 1.1 % (0-6); HEMATOCRIT 28.2 % (35.0-45.0); LYMPHOCYTES % (AUTO) 16.5 % (21-51); MEAN CORPUSCULAR HEMOGLOBIN 38.1 PG (27.0-31.0); MEAN CORPUSCULAR HGB CONC 42.2 % (33.0-36.5); MEAN CORPUSCULAR VOLUME 90.4 FL (78-98); MEAN PLATELET VOLUME 7.3 FL (7.4-10.4); MONOCYTES # (AUTO) 0.1 X10'3 (0-0.9); MONOCYTES % (AUTO) 1.5 % (2-12); NEUTROPHILS # (AUTO) 7.3 X10'3 (1.8-7.7); NEUTROPHILS % (AUTO) 80.8 % (42-75); RED BLOOD COUNT 3.11 X10'6 (4.20-5.60); RED CELL DISTRIBUTION WIDTH 17.6 % (11.5-14.5)
[2017-12-26 21:04] LABS: ANISOCYTOSIS 2+; ELLIPTOCYTES FEW; PLATELET ESTIMATE DECREASED; SPHEROCYTES 2+; TEAR DROP CELLS FEW
[2017-12-26] MEDS ORDERED: linezolid 600mg/300ml PREMIX 300 ML IV ONE ×2 (21:05→21:58)
[2017-12-26] MEDS ORDERED: cefepime 2g/NS 100ml ADVANTAGE 100 ML IV ONE ×2 (21:05→21:58)
[2017-12-26] MEDS ORDERED: acetaminophen 325mg tablet PO PRN ×2 (21:10→21:25)
[2017-12-26] MEDS ORDERED: HYDROcodone/acetaminophen 5mg/325mg tablet PO PRN (21:25)
[2017-12-26] MEDS ORDERED: ondansetron/PF 4mg/2ml inj IV PRN (21:25)
[2017-12-26 22:46] LABS: PLATELET COUNT 74 X10'3 (140-440)
[2017-12-26 23:19] LABS: D-DIMER 2.42 MG/L FEU (0-0.50); INR 1.1 INR; PARTIAL THROMBOPLASTIN TIME 36 SECONDS (22-32); PROTHROMBIN TIME 11.1 SECONDS (9.0-12.0)
[2017-12-27 01:30] VITALS: BP 119/57
[2017-12-27 01:39] LABS: ALANINE AMINOTRANSFERASE 28 U/L (12-78); ALBUMIN 1.3 G/DL (3.4-5.0); ALBUMIN/GLOBULIN RATIO 0.2 (1.1-1.5); ALKALINE PHOSPHATASE 47 IU/L (46-116); ANION GAP 10 (8-16); ASPARTATE AMINO TRANSFERASE 16 U/L (10-37); BILIRUBIN,TOTAL 0.3 MG/DL (0.1-1.0); BLOOD UREA NITROGEN 35 MG/DL (7-18); CALCIUM 7.8 MG/DL (8.5-10.1); CHLORIDE 99 MMOL/L (99-107); CREATININE 2.33 MG/DL (0.40-0.90); GLUCOSE 110 MG/DL (70-104); POTASSIUM 4.5 MMOL/L (3.5-5.1); SODIUM 135 MMOL/L (135-145); TOTAL CARBON DIOXIDE 25.6 MMOL/L (24-32); TOTAL PROTEIN 7.3 G/DL (6.4-8.2); eGFR 20 ML/MIN
[2017-12-27 06:00] VITALS: BP 129/58
[2017-12-27] MEDS: pantoprazole 40mg Tablet.DR PO SCH (07:30)
[2017-12-27 07:31] LABS: BASOPHILS # (AUTO) 0.1 X10'3 (0-0.2); BASOPHILS % (AUTO) 0.8 % (0-1); EOSINOPHILS # (AUTO) 0.1 X10'3 (0-0.9); HEMATOCRIT 25.1 % (35.0-45.0); HEMOGLOBIN 10.9 g/dl (12.0-16.0); LYMPHOCYTES # (AUTO) 2.1 X10'3 (1.1-4.8); LYMPHOCYTES % (AUTO) 15.3 % (21-51); MEAN CORPUSCULAR HEMOGLOBIN 39.1 PG (27.0-31.0); MEAN CORPUSCULAR VOLUME 90.1 FL (78-98); MONOCYTES # (AUTO) 0.1 X10'3 (0-0.9); MONOCYTES % (AUTO) 0.8 % (2-12); NEUTROPHILS # (AUTO) 11.3 X10'3 (1.8-7.7); NEUTROPHILS % (AUTO) 82.1 % (42-75); PLATELET COUNT 66 X10'3 (140-440); RED BLOOD COUNT 2.79 X10'6 (4.20-5.60); RED CELL DISTRIBUTION WIDTH 17.6 % (11.5-14.5); WHITE BLOOD COUNT 13.7 X10'3 (4.5-11.0)
[2017-12-27 07:50] LABS: ALANINE AMINOTRANSFERASE 29 U/L (12-78); ALBUMIN 1.3 G/DL (3.4-5.0); ALBUMIN/GLOBULIN RATIO 0.2 (1.1-1.5); ALKALINE PHOSPHATASE 49 IU/L (46-116); ANION GAP 12 (8-16); ASPARTATE AMINO TRANSFERASE 14 U/L (10-37); BILIRUBIN,TOTAL 0.4 MG/DL (0.1-1.0); BLOOD UREA NITROGEN 38 MG/DL (7-18); BUN/CREATININE RATIO 16.1 (6.6-38.0); CALCIUM 7.8 MG/DL (8.5-10.1); CHLORIDE 102 MMOL/L (99-107); CREATININE 2.36 MG/DL (0.40-0.90); MAGNESIUM 1.7 MG/DL (1.5-2.4); PHOSPHORUS 4.3 MG/DL (2.3-4.5); POTASSIUM 4.7 MMOL/L (3.5-5.1); SODIUM 138 MMOL/L (135-145); TOTAL CARBON DIOXIDE 23.7 MMOL/L (24-32); TOTAL PROTEIN 7.2 G/DL (6.4-8.2); eGFR 20 ML/MIN
[2017-12-27 07:51] LABS: GLUCOSE 84 MG/DL (70-104)
[2017-12-27] MEDS: aspirin 325mg tablet, delayed-release (Ecotrin) PO SCH (08:00)
[2017-12-27] MEDS: magnesium Cl slow-release 64mg tablet PO SCH ×3 (08:00→21:00)
[2017-12-27] MEDS: amiodarone 200mg tablet PO SCH (08:00)
[2017-12-27] MEDS: sodium polystyrene sulfonate 15gm/60ml oral suspension PO SCH (08:00)
[2017-12-27] MEDS: lactobacillus rhamnosus 10,000 MMU CELLS/CAPSULE PO SCH ×2 (08:00→20:08)
[2017-12-27] MEDS: heparin, porcine 5000 units/ml vial SQ SCH ×2 (08:00→20:00)
[2017-12-27] MEDS: folic acid/vitamin B complex w/vitamin C 0.8mg tablet PO SCH (08:00)
[2017-12-27] MEDS: linezolid 600mg/300ml PREMIX 300 ML IV SCH ×2 (08:10→20:08)
[2017-12-27 08:14] LABS: MEAN CORPUSCULAR HGB CONC 43.4 % (33.0-36.5)
[2017-12-27] MEDS ORDERED: heparin 1,000unit/ml 10ml vial 10 ML IV ONE (09:56)
[2017-12-27] MEDS ORDERED: heparin 1,000 units/ml 10ml inj HE ONE ×2 (10:00)
[2017-12-27 11:00] VITALS: BP 108/51
[2017-12-27] MEDS ORDERED: albumin (human) 25% 100ml IV 100 ML IV PRN (12:25)
[2017-12-27 15:00] VITALS: BP 94/56
[2017-12-27 15:41] LABS: C DIFF ANTIGEN NEGATIVE (NEGATIVE); C DIFF SPECIMEN=DIARRHEA? ACCEPTABLE; C DIFFICILE TOXINS A&B NEGATIVE (Neg)
[2017-12-27 18:00] VITALS: BP 116/55
[2017-12-27] MEDS ORDERED: cefepime 1GM/100ML NS ADD-VANTAGE BAG IV SCH (21:00)
[2017-12-27] MEDS ORDERED: cefepime inj. 1 GM in normal saline 100ml IV soln 100 ML IV SCH (21:00)
[2017-12-27 22:00] VITALS: BP 125/52
[2017-12-27] MEDS ORDERED: cefepime 2g/NS 100ml ADVANTAGE 100 ML IV ONE (22:37)
[2017-12-27] MEDS ORDERED: ceFAZolin 1GM/D5W- ADD-VANTAGE 50 ML IV ONE (22:55)
[2017-12-28] VITALS (9 sets, daily range): BP systolic 101–125; BP diastolic 52–58
[2017-12-28 05:12] LABS: BASOPHILS % (AUTO) 0.3 % (0-1); EOSINOPHILS # (AUTO) 0.1 X10'3 (0-0.9); EOSINOPHILS % (AUTO) 0.9 % (0-6); HEMOGLOBIN 8.9 g/dl (12.0-16.0); LYMPHOCYTES # (AUTO) 1.9 X10'3 (1.1-4.8); LYMPHOCYTES % (AUTO) 30.5 % (21-51); MEAN CORPUSCULAR HEMOGLOBIN 40.8 PG (27.0-31.0); MEAN CORPUSCULAR HGB CONC 44.6 % (33.0-36.5); MEAN CORPUSCULAR VOLUME 91.4 FL (78-98); MEAN PLATELET VOLUME 7.2 FL (7.4-10.4); MONOCYTES # (AUTO) 0.1 X10'3 (0-0.9); MONOCYTES % (AUTO) 2.4 % (2-12); NEUTROPHILS # (AUTO) 4.1 X10'3 (1.8-7.7); NEUTROPHILS % (AUTO) 65.9 % (42-75); RED BLOOD COUNT 2.19 X10'6 (4.20-5.60); RED CELL DISTRIBUTION WIDTH 17.8 % (11.5-14.5); WHITE BLOOD COUNT 6.3 X10'3 (4.5-11.0)
[2017-12-28 05:35] LABS: ALANINE AMINOTRANSFERASE 23 U/L (12-78); ALBUMIN 1.7 G/DL (3.4-5.0); ALBUMIN/GLOBULIN RATIO 0.3 (1.1-1.5); ALKALINE PHOSPHATASE 44 IU/L (46-116); ANION GAP 9 (8-16); ASPARTATE AMINO TRANSFERASE 13 U/L (10-37); BILIRUBIN,TOTAL 0.4 MG/DL (0.1-1.0); BLOOD UREA NITROGEN 18 MG/DL (7-18); BUN/CREATININE RATIO 11.4 (6.6-38.0); CALCIUM 7.7 MG/DL (8.5-10.1); CHLORIDE 99 MMOL/L (99-107); CREATININE 1.58 MG/DL (0.40-0.90); MAGNESIUM 1.7 MG/DL (1.5-2.4); PHOSPHORUS 2.6 MG/DL (2.3-4.5); POTASSIUM 3.8 MMOL/L (3.5-5.1); SODIUM 136 MMOL/L (135-145); TOTAL PROTEIN 7.1 G/DL (6.4-8.2); eGFR 31 ML/MIN
[2017-12-28 05:37] LABS: GLUCOSE 81 MG/DL (70-104)
[2017-12-28] MEDS: heparin, porcine 5000 units/ml vial SQ SCH ×2 (08:00→20:00)
[2017-12-28] MEDS ORDERED: epoetin 20,000 units/ml inj IV ONE (08:00)
[2017-12-28] MEDS ORDERED: normal saline 1000ml 250 ML IV PRN (08:00)
[2017-12-28] MEDS ORDERED: heparin 1,000 units/ml 10ml inj IV ONE (08:00)
[2017-12-28] MEDS ORDERED: albumin (human) 25% 100ml IV 100 ML IV PRN (08:00)
[2017-12-28] MEDS ORDERED: LIDOcaine 1% (10mg/ml) 2ml vial SQ ONE (08:00)
[2017-12-28] MEDS: sodium polystyrene sulfonate 15gm/60ml oral suspension PO SCH (08:00)
[2017-12-28] MEDS ORDERED: heparin 1,000unit/ml 10ml vial 10 ML IV ONE (08:00)
[2017-12-28] MEDS: pantoprazole 40mg Tablet.DR PO SCH (08:06)
[2017-12-28] MEDS: linezolid 600mg/300ml PREMIX 300 ML IV SCH (08:07)
[2017-12-28] MEDS: amiodarone 200mg tablet PO SCH (08:14)
[2017-12-28] MEDS: aspirin 325mg tablet, delayed-release (Ecotrin) PO SCH (08:15)
[2017-12-28] MEDS: lactobacillus rhamnosus 10,000 MMU CELLS/CAPSULE PO SCH ×2 (08:15→20:00)
[2017-12-28] MEDS: magnesium Cl slow-release 64mg tablet PO SCH ×3 (08:15→21:00)
[2017-12-28] MEDS: folic acid/vitamin B complex w/vitamin C 0.8mg tablet PO SCH (08:15)
[2017-12-28 08:41] LABS: PLATELET COUNT 37 X10'3 (140-440)
[2017-12-28 08:42] LABS: HEMATOCRIT 20.1 % (35.0-45.0)
[2017-12-28 09:27] LABS: PLATELET ESTIMATE DECREASED
[2017-12-28 09:28] LABS: ANISOCYTOSIS 2+; SPHEROCYTES 2+
[2017-12-28 09:29] LABS: ELLIPTOCYTES FEW; ROULEAUX 1+; TEAR DROP CELLS FEW
[2017-12-28] MEDS ORDERED: heparin 1,000 units/ml 10ml inj HE ONE ×2 (14:15)
[2017-12-28] MEDS ORDERED: tPA-cathflo 2 MG/2 ml IV flush IVF ONE ×2 (15:05)
[2017-12-28] MEDS: Protein Smoothie (high protein) 240ml (8oz) cup PO SCH (18:00)
[2017-12-28 20:52] LABS: INR 1.1 INR; PROTHROMBIN TIME 11.7 SECONDS (9.0-12.0)
[2017-12-28 22:18] LABS: BASOPHILS # (AUTO) 0.1 X10'3 (0-0.2); BASOPHILS % (AUTO) 0.8 % (0-1); EOSINOPHILS % (AUTO) 0 % (0-6); HEMOGLOBIN 9.4 g/dl (12.0-16.0); LYMPHOCYTES # (AUTO) 2.1 X10'3 (1.1-4.8); LYMPHOCYTES % (AUTO) 26.2 % (21-51); MEAN CORPUSCULAR HEMOGLOBIN 41.5 PG (27.0-31.0); MEAN CORPUSCULAR HGB CONC 45.6 % (33.0-36.5); MEAN CORPUSCULAR VOLUME 90.9 FL (78-98); MEAN PLATELET VOLUME 7.1 FL (7.4-10.4); MONOCYTES # (AUTO) 0.1 X10'3 (0-0.9); MONOCYTES % (AUTO) 1.5 % (2-12); NEUTROPHILS # (AUTO) 5.7 X10'3 (1.8-7.7); NEUTROPHILS % (AUTO) 71.5 % (42-75); RED BLOOD COUNT 2.27 X10'6 (4.20-5.60); RED CELL DISTRIBUTION WIDTH 18.9 % (11.5-14.5)
[2017-12-28 22:47] LABS: HEMATOCRIT 20.6 % (35.0-45.0); PLATELET COUNT 41 X10'3 (140-440)
[2017-12-29] VITALS (24 sets, daily range): BP systolic 71–131; BP diastolic 38–63
[2017-12-29] MEDS: linezolid 600mg/300ml PREMIX 300 ML IV SCH ×3 (00:22→21:12)
[2017-12-29 00:46] LABS: ANISOCYTOSIS 2+; PLATELET ESTIMATE DECREASED; TEAR DROP CELLS FEW
[2017-12-29 00:50] LABS: SPHEROCYTES 3+
[2017-12-29 00:51] LABS: ROULEAUX 1+
[2017-12-29] MEDS ORDERED: albuterol 2.5 MG/3 ML nebule NEB STA (00:54)
[2017-12-29 01:05] LABS: BASOPHILS # (AUTO) 0.1 X10'3 (0-0.2); BASOPHILS % (AUTO) 0.4 % (0-1); EOSINOPHILS % (AUTO) 0 % (0-6); HEMATOCRIT 24.3 % (35.0-45.0); HEMOGLOBIN 11.1 g/dl (12.0-16.0); LYMPHOCYTES # (AUTO) 7.4 X10'3 (1.1-4.8); LYMPHOCYTES % (AUTO) 32.1 % (21-51); MEAN CORPUSCULAR HEMOGLOBIN 41.7 PG (27.0-31.0); MEAN CORPUSCULAR HGB CONC 45.5 % (33.0-36.5); MEAN CORPUSCULAR VOLUME 91.7 FL (78-98); MEAN PLATELET VOLUME 7.8 FL (7.4-10.4); MONOCYTES # (AUTO) 1.3 X10'3 (0-0.9); MONOCYTES % (AUTO) 5.6 % (2-12); NEUTROPHILS # (AUTO) 14.3 X10'3 (1.8-7.7); NEUTROPHILS % (AUTO) 61.9 % (42-75); PLATELET COUNT 144 X10'3 (140-440); RED BLOOD COUNT 2.65 X10'6 (4.20-5.60); WHITE BLOOD COUNT 23.1 X10'3 (4.5-11.0)
[2017-12-29 01:05] LABS: ABG BASE EXCESS -0.2 mmol/L (-2.0-3.0); ABG HCO3 27.4 mmol/L (22.0-26.0); ABG OXYGEN SATURATION 63.5 % (95-98); ABG PH (T) 7.267 (7.350-7.450); ABG PO2 (T) 37.4 mmHg (83-108); FCOHb 0.2 % (0.5-1.5); FLOW 15 L/min; FMetHb 0.2 % (0.3-1.12); FO2Hb 63.2 % (94-100); PATIENT TEMPERATURE 36.5; RESPIRATORY RATE (OBSERVED) 24 b/min; TOTAL HEMOGLOBIN 8.8 G/dl (12.0-16.0)
[2017-12-29 01:17] LABS: INR 1.1 INR; PARTIAL THROMBOPLASTIN TIME 34 SECONDS (22-32); PROTHROMBIN TIME 11.3 SECONDS (9.0-12.0)
[2017-12-29 01:18] LABS: ALBUMIN 1.7 G/DL (3.4-5.0); ANION GAP 7 (8-16); BLOOD UREA NITROGEN 13 MG/DL (7-18); BUN/CREATININE RATIO 9.8 (6.6-38.0); CHLORIDE 100 MMOL/L (99-107); CREATININE 1.33 MG/DL (0.40-0.90); PHOSPHORUS 2.4 MG/DL (2.3-4.5); POTASSIUM 4.9 MMOL/L (3.5-5.1); SODIUM 135 MMOL/L (135-145); TOTAL CARBON DIOXIDE 28.3 MMOL/L (24-32); eGFR 38 ML/MIN
[2017-12-29 01:20] LABS: GLUCOSE 133 MG/DL (70-104)
[2017-12-29] MEDS ORDERED: albuterol 2.5 MG/3 ML nebule ONE (01:26)
[2017-12-29] MEDS: cefepime inj. 1 GM in dextrose 5%-water 100 ML IV SCH ×2 (01:41→21:38)
[2017-12-29] MEDS ORDERED: albumin (Human) 5% 250 ML IV solution IV STA (02:15)
[2017-12-29 02:21] LABS: ABG BASE EXCESS 3.7 mmol/L (-2.0-3.0); ABG HCO3 28.3 mmol/L (22.0-26.0); ABG OXYGEN SATURATION 98.6 % (95-98); ABG PCO2 (T) 42.8 mmHg (32.0-45.0); ABG PH (T) 7.437 (7.350-7.450); ABG PO2 (T) 116.7 mmHg (83-108); FCOHb 0.6 % (0.5-1.5); FMetHb 0.1 % (0.3-1.12); FO2Hb 97.9 % (94-100); MINUTE VOLUME 8 L/min; PATIENT TEMPERATURE 36.9; RESPIRATORY RATE 16 b/min; RESPIRATORY RATE (OBSERVED) 27 b/min; TOTAL HEMOGLOBIN 7.3 G/dl (12.0-16.0)
[2017-12-29 02:34] LABS: TOTAL CELLS COUNTED 100
[2017-12-29 02:40] LABS: PLATELET ESTIMATE NORMAL; SMUDGE CELLS 3+
[2017-12-29 02:41] LABS: SPHEROCYTES 3+; TEAR DROP CELLS FEW
[2017-12-29 02:42] LABS: ANISOCYTOSIS 3+; ELLIPTOCYTES FEW; POIKILOCYTOSIS FEW
[2017-12-29 02:43] LABS: ROULEAUX 1+
[2017-12-29] MEDS ORDERED: albumin (Human) 5% 250ml 250 ML IV ONE (04:44)
[2017-12-29] MEDS ORDERED: morphine 4 MG/ML inj SYRINge ONE (05:03)
[2017-12-29] MEDS ORDERED: MORPHINE 2MG in 2ml NS syringe IV PRN (05:05)
[2017-12-29] MEDS ORDERED: NORepinephrine 8mg/ 250ml NS 250 ML IV ONE (05:28)
[2017-12-29 07:25] LABS: ALANINE AMINOTRANSFERASE 22 U/L (12-78); ALBUMIN 2.2 G/DL (3.4-5.0); ALBUMIN/GLOBULIN RATIO 0.4 (1.1-1.5); ALKALINE PHOSPHATASE 54 IU/L (46-116); ANION GAP 7 (8-16); ASPARTATE AMINO TRANSFERASE 15 U/L (10-37); BILIRUBIN,TOTAL 0.5 MG/DL (0.1-1.0); BLOOD UREA NITROGEN 15 MG/DL (7-18); BUN/CREATININE RATIO 10.2 (6.6-38.0); CALCIUM 7.7 MG/DL (8.5-10.1); CHLORIDE 101 MMOL/L (99-107); CREATININE 1.47 MG/DL (0.40-0.90); GLUCOSE 115 MG/DL (70-104); MAGNESIUM 1.8 MG/DL (1.5-2.4); PHOSPHORUS 2.7 MG/DL (2.3-4.5); POTASSIUM 3.8 MMOL/L (3.5-5.1); SODIUM 136 MMOL/L (135-145); TOTAL CARBON DIOXIDE 28.5 MMOL/L (24-32); TOTAL PROTEIN 7.5 G/DL (6.4-8.2); eGFR 34 ML/MIN
[2017-12-29] MEDS: pantoprazole 40mg Tablet.DR PO SCH (07:30)
[2017-12-29] MEDS: amiodarone 200mg tablet PO SCH (08:00)
[2017-12-29] MEDS: lactobacillus rhamnosus 10,000 MMU CELLS/CAPSULE PO SCH ×2 (08:00→21:12)
[2017-12-29] MEDS: aspirin 325mg tablet, delayed-release (Ecotrin) PO SCH (08:00)
[2017-12-29] MEDS: folic acid/vitamin B complex w/vitamin C 0.8mg tablet PO SCH (08:00)
[2017-12-29] MEDS: Protein Smoothie (high protein) 240ml (8oz) cup PO SCH ×3 (08:00→18:00)
[2017-12-29] MEDS: sodium polystyrene sulfonate 15gm/60ml oral suspension PO SCH (08:00)
[2017-12-29] MEDS ORDERED: normal saline 1000ml 250 ML IV PRN (08:18)
[2017-12-29] MEDS ORDERED: heparin 1,000unit/ml 10ml vial 10 ML IV ONE (08:18)
[2017-12-29] MEDS ORDERED: heparin 1,000 units/ml 10ml inj HE ONE ×2 (08:25)
[2017-12-29 08:40] LABS: BASOPHILS % (AUTO) 0.2 % (0-1); EOSINOPHILS % (AUTO) 0 % (0-6); HEMOGLOBIN 9.5 g/dl (12.0-16.0); LYMPHOCYTES # (AUTO) 2.6 X10'3 (1.1-4.8); LYMPHOCYTES % (AUTO) 19.3 % (21-51); MEAN CORPUSCULAR HEMOGLOBIN 40.8 PG (27.0-31.0); MEAN CORPUSCULAR HGB CONC 45.7 % (33.0-36.5); MEAN CORPUSCULAR VOLUME 89.2 FL (78-98); MEAN PLATELET VOLUME 7.4 FL (7.4-10.4); MONOCYTES # (AUTO) 0.2 X10'3 (0-0.9); MONOCYTES % (AUTO) 1.4 % (2-12); NEUTROPHILS # (AUTO) 10.8 X10'3 (1.8-7.7); NEUTROPHILS % (AUTO) 79.1 % (42-75); PLATELET COUNT 93 X10'3 (140-440); RED BLOOD COUNT 2.33 X10'6 (4.20-5.60); WHITE BLOOD COUNT 13.7 X10'3 (4.5-11.0)
[2017-12-29 08:43] LABS: ABG BASE EXCESS -1.6 mmol/L (-2.0-3.0); ABG HCO3 27.1 mmol/L (22.0-26.0); ABG OXYGEN SATURATION 88.3 % (95-98); ABG PCO2 (T) 70.3 mmHg (32.0-45.0); ABG PH (T) 7.204 (7.350-7.450); ABG PO2 (T) 64.3 mmHg (83-108); ALLEN'S TEST Positive; FMetHb 0.3 % (0.3-1.12); MINUTE VOLUME 9 L/min; RESPIRATORY RATE (OBSERVED) 32 b/min; TOTAL HEMOGLOBIN 9.3 G/dl (12.0-16.0)
[2017-12-29 08:43] LABS: ABG BASE EXCESS -1.3 mmol/L (-2.0-3.0); ABG HCO3 25.7 mmol/L (22.0-26.0); ABG OXYGEN SATURATION 98.1 % (95-98); ABG PCO2 (T) 55.4 mmHg (32.0-45.0); ABG PH (T) 7.285 (7.350-7.450); ABG PO2 (T) 136.4 mmHg (83-108); ALLEN'S TEST Positive; FCOHb 0.7 % (0.5-1.5); FMetHb 0.3 % (0.3-1.12); FO2Hb 97.1 % (94-100); MINUTE VOLUME 10 L/min; RESPIRATORY RATE 16 b/min; RESPIRATORY RATE (OBSERVED) 17 b/min; TOTAL HEMOGLOBIN 9.5 G/dl (12.0-16.0)
[2017-12-29 08:50] LABS: HEMATOCRIT 20.8 % (35.0-45.0)
[2017-12-29] MEDS: magnesium Cl slow-release 64mg tablet PO SCH ×3 (09:49→21:00)
[2017-12-29 11:14] LABS: HBSAG SCREEN Negative (Negative)
[2017-12-29] MEDS ORDERED: linezolid 600mg/300ml PREMIX 300 ML IV SCH (12:05)
[2017-12-29 14:41] LABS: ABG BASE EXCESS 2.5 mmol/L (-2.0-3.0); ABG HCO3 28.6 mmol/L (22.0-26.0); ABG OXYGEN SATURATION 95.1 % (95-98); ABG PCO2 (T) 52.6 mmHg (32.0-45.0); ABG PH (T) 7.353 (7.350-7.450); ABG PO2 (T) 79.7 mmHg (83-108); FCOHb 0.3 % (0.5-1.5); FMetHb 0.2 % (0.3-1.12); FO2Hb 94.6 % (94-100); MINUTE VOLUME 10 L/min; RESPIRATORY RATE 16 b/min; RESPIRATORY RATE (OBSERVED) 16 b/min; TOTAL HEMOGLOBIN 8.6 G/dl (12.0-16.0)
[2017-12-29] MEDS ORDERED: midazolam 100mg in NS 100ml 100 ML IV PRN (16:34)
[2017-12-29] MEDS ORDERED: FENTANYL-0.9 % NACL/PF 100 ML IV PRN (16:34)
[2017-12-29] MEDS ORDERED: midazolam 2 mg/2 ml injection IV ONE (16:35)
[2017-12-29] MEDS ORDERED: MIDAZolam 5mg/ml 2ml vial IV ONE (16:35)
[2017-12-29] MEDS ORDERED: fentaNYL/PF 50MCG/1 ML 2ML syringe IV PRN (16:35)
[2017-12-29] MEDS ORDERED: MIDAZolam 5mg/ml 2ml vial ONE (16:35)
[2017-12-29] MEDS ORDERED: ipratropium/albuterol 3ml nebule NEB PRN (16:35)
[2017-12-29] MEDS ORDERED: etomidate 2mg/ml inj. IV ONE (16:35)
[2017-12-29 17:50] LABS: ABG BASE EXCESS 5.2 mmol/L (-2.0-3.0); ABG HCO3 26.8 mmol/L (22.0-26.0); ABG OXYGEN SATURATION 96.5 % (95-98); ABG PCO2 (T) 28.1 mmHg (32.0-45.0); ABG PH (T) 7.597 (7.350-7.450); ALLEN'S TEST Positive; FCOHb 0.3 % (0.5-1.5); FMetHb 0.2 % (0.3-1.12); MINUTE VOLUME 8 L/min; PEEP 5 cm H2O; RESPIRATORY RATE 20 b/min; RESPIRATORY RATE (OBSERVED) 22 b/min; TIDAL VOLUME 350 mL; TOTAL HEMOGLOBIN 8.3 G/dl (12.0-16.0)
[2017-12-29] MEDS: ipratropium/albuterol 3ml nebule NEB SCH ×2 (18:56→23:18)
[2017-12-29] MEDS ORDERED: linezolid 600mg tablet PO SCH (20:00)
[2017-12-29] MEDS: heparin, porcine 5000 units/ml vial SQ SCH (20:00)
[2017-12-30] VITALS (24 sets, daily range): BP systolic 81–122; BP diastolic 44–63
[2017-12-30] MEDS: ipratropium/albuterol 3ml nebule NEB SCH ×6 (03:19→23:22)
[2017-12-30 03:26] LABS: BASOPHILS % (AUTO) 0.1 % (0-1); EOSINOPHILS % (AUTO) 0 % (0-6); HEMOGLOBIN 9.3 g/dl (12.0-16.0); LYMPHOCYTES # (AUTO) 4.3 X10'3 (1.1-4.8); LYMPHOCYTES % (AUTO) 34.4 % (21-51); MEAN CORPUSCULAR HEMOGLOBIN 41.2 PG (27.0-31.0); MEAN CORPUSCULAR HGB CONC 44.7 % (33.0-36.5); MEAN CORPUSCULAR VOLUME 92.2 FL (78-98); MEAN PLATELET VOLUME 7.1 FL (7.4-10.4); MONOCYTES # (AUTO) 0.3 X10'3 (0-0.9); MONOCYTES % (AUTO) 2.1 % (2-12); NEUTROPHILS # (AUTO) 7.9 X10'3 (1.8-7.7); NEUTROPHILS % (AUTO) 63.4 % (42-75); PLATELET COUNT 75 X10'3 (140-440); RED BLOOD COUNT 2.25 X10'6 (4.20-5.60); WHITE BLOOD COUNT 12.5 X10'3 (4.5-11.0)
[2017-12-30 03:41] LABS: ALANINE AMINOTRANSFERASE 23 U/L (12-78); ALBUMIN 1.7 G/DL (3.4-5.0); ALBUMIN/GLOBULIN RATIO 0.3 (1.1-1.5); ALKALINE PHOSPHATASE 58 IU/L (46-116); ANION GAP 7 (8-16); ASPARTATE AMINO TRANSFERASE 14 U/L (10-37); BILIRUBIN,TOTAL 0.5 MG/DL (0.1-1.0); BLOOD UREA NITROGEN 11 MG/DL (7-18); BUN/CREATININE RATIO 9.5 (6.6-38.0); CALCIUM 7.7 MG/DL (8.5-10.1); CHLORIDE 100 MMOL/L (99-107); CREATININE 1.16 MG/DL (0.40-0.90); MAGNESIUM 1.6 MG/DL (1.5-2.4); POTASSIUM 3.2 MMOL/L (3.5-5.1); SODIUM 135 MMOL/L (135-145); TOTAL CARBON DIOXIDE 27.9 MMOL/L (24-32); TOTAL PROTEIN 7.1 G/DL (6.4-8.2); eGFR 45 ML/MIN
[2017-12-30 03:47] LABS: GLUCOSE 104 MG/DL (70-104)
[2017-12-30 03:51] LABS: ABG BASE EXCESS 3.1 mmol/L (-2.0-3.0); ABG HCO3 26.4 mmol/L (22.0-26.0); ABG OXYGEN SATURATION 99.7 % (95-98); ABG PCO2 (T) 33.9 mmHg (32.0-45.0); ABG PH (T) 7.507 (7.350-7.450); ABG PO2 (T) 237.9 mmHg (83-108); FCOHb 0.1 % (0.5-1.5); FMetHb 0.3 % (0.3-1.12); FO2Hb 99.3 % (94-100); MINUTE VOLUME 6 L/min; PATIENT TEMPERATURE 36.4; PEEP 5 cm H2O; RESPIRATORY RATE 16 b/min; RESPIRATORY RATE (OBSERVED) 16 b/min; TIDAL VOLUME 350 mL; TOTAL HEMOGLOBIN 7.6 G/dl (12.0-16.0)
[2017-12-30 03:58] LABS: HEMATOCRIT 20.8 % (35.0-45.0)
[2017-12-30 04:41] LABS: CLARITY,URINE TURBID (Clear); COLOR,URINE YELLOW (Yellow); GLUCOSE, URINE NEGATIVE (Neg); KETONES,URINE NEGATIVE (Neg); LEUKOCYTE ESTERASE ,URINE LARGE (Neg); NITRITES, URINE NEGATIVE (Neg); OCCULT BLOOD,URINE LARGE (Neg); PH,URINE 5.5 (4.8-8.0); PROTEIN,URINE 100 mg/dl (Neg); UROBILINOGEN,URINE 0.2 E.U/dL (0.2-1.0)
[2017-12-30 04:48] LABS: UA COLLECTION TYPE FOLEY CATH
[2017-12-30 04:53] LABS: RBC,URINE 20-50 /HPF (0-2); WBC,URINE TNTC /HPF (0-4)
[2017-12-30 04:54] LABS: BACTERIA,URINE NONE SEEN /HPF (Neg); SQUAMOUS EPITHELIAL CELL,UR FEW /LPF (FEW)
[2017-12-30 04:57] LABS: YEAST MANY /HPF (NEGATIVE)
[2017-12-30 05:36] LABS: ANISOCYTOSIS 2+; PLATELET ESTIMATE DECREASED
[2017-12-30 05:37] LABS: ROULEAUX 1+; SPHEROCYTES 1+
[2017-12-30] MEDS: Protein Smoothie (high protein) 240ml (8oz) cup PO SCH ×3 (07:03→18:00)
[2017-12-30] MEDS: magnesium Cl slow-release 64mg tablet PO SCH ×3 (07:05→20:07)
[2017-12-30] MEDS: pantoprazole 40 MG vial IV SCH (08:00)
[2017-12-30] MEDS: heparin, porcine 5000 units/ml vial SQ SCH ×2 (08:00→19:58)
[2017-12-30] MEDS: lactobacillus rhamnosus 10,000 MMU CELLS/CAPSULE PO SCH ×2 (08:19→19:57)
[2017-12-30] MEDS: folic acid/vitamin B complex w/vitamin C 0.8mg tablet PO SCH (08:19)
[2017-12-30] MEDS: amiodarone 200mg tablet PO SCH (08:20)
[2017-12-30] MEDS: linezolid 600mg/300ml PREMIX 300 ML IV SCH ×2 (08:21→21:15)
[2017-12-30] MEDS: aspirin 325mg tablet, delayed-release (Ecotrin) PO SCH (08:22)
[2017-12-30] MEDS: morphine/NS 100mg/100ml bag 100 ML IV SCH (11:50)
[2017-12-30] MEDS ORDERED: normal saline 1000ml 1,000 ML IV ONE (18:00)
[2017-12-30] MEDS: cefepime inj. 1 GM in dextrose 5%-water 100 ML IV SCH (20:07)
[2017-12-30] MEDS: mineral oil/petrolatum ophthal oint EACHEYE SCH (20:07)
[2017-12-31] VITALS (22 sets, daily range): BP systolic 85–151; BP diastolic 43–93
[2017-12-31] MEDS: mineral oil/petrolatum ophthal oint EACHEYE SCH ×4 (01:46→20:00)
[2017-12-31] MEDS: NORepinephrine 8mg/ 250ml NS 250 ML IV SCH ×2 (01:46→14:31)
[2017-12-31 03:23] LABS: ALANINE AMINOTRANSFERASE 20 U/L (12-78); ALBUMIN 1.5 G/DL (3.4-5.0); ALBUMIN/GLOBULIN RATIO 0.3 (1.1-1.5); ALKALINE PHOSPHATASE 62 IU/L (46-116); ANION GAP 8 (8-16); ASPARTATE AMINO TRANSFERASE 13 U/L (10-37); BILIRUBIN,TOTAL 0.4 MG/DL (0.1-1.0); BLOOD UREA NITROGEN 16 MG/DL (7-18); BUN/CREATININE RATIO 10.4 (6.6-38.0); CALCIUM 7.4 MG/DL (8.5-10.1); CHLORIDE 98 MMOL/L (99-107); CREATININE 1.54 MG/DL (0.40-0.90); MAGNESIUM 1.4 MG/DL (1.5-2.4); PHOSPHORUS 2.3 MG/DL (2.3-4.5); POTASSIUM 3.4 MMOL/L (3.5-5.1); PREALBUMIN 11.9 MG/DL (19-36); SODIUM 133 MMOL/L (135-145); eGFR 32 ML/MIN
[2017-12-31 03:27] LABS: GLUCOSE 115 MG/DL (70-104)
[2017-12-31] MEDS: ipratropium/albuterol 3ml nebule NEB SCH ×6 (04:00→23:03)
[2017-12-31 04:21] LABS: ABG BASE EXCESS 0.1 mmol/L (-2.0-3.0); ABG HCO3 25.1 mmol/L (22.0-26.0); ABG OXYGEN SATURATION 92.3 % (95-98); ABG PCO2 (T) 41.5 mmHg (32.0-45.0); ABG PH (T) 7.397 (7.350-7.450); ABG PO2 (T) 60.2 mmHg (83-108); FCOHb 1.1 % (0.5-1.5); FMetHb 0.1 % (0.3-1.12); FO2Hb 91.2 % (94-100); MINUTE VOLUME 7 L/min; PATIENT TEMPERATURE 36.4; PEEP 5 cm H2O; RESPIRATORY RATE 12 b/min; RESPIRATORY RATE (OBSERVED) 12 b/min; TIDAL VOLUME 350 mL; TOTAL HEMOGLOBIN 5.4 G/dl (12.0-16.0)
[2017-12-31 04:24] LABS: BASOPHILS % (AUTO) 0.2 % (0-1); EOSINOPHILS % (AUTO) 0 % (0-6); HEMOGLOBIN 8.9 g/dl (12.0-16.0); LYMPHOCYTES # (AUTO) 2.5 X10'3 (1.1-4.8); LYMPHOCYTES % (AUTO) 27.5 % (21-51); MEAN CORPUSCULAR HEMOGLOBIN 41.4 PG (27.0-31.0); MEAN CORPUSCULAR HGB CONC 45.1 % (33.0-36.5); MEAN CORPUSCULAR VOLUME 91.8 FL (78-98); MEAN PLATELET VOLUME 6.6 FL (7.4-10.4); MONOCYTES # (AUTO) 0.1 X10'3 (0-0.9); MONOCYTES % (AUTO) 0.8 % (2-12); NEUTROPHILS # (AUTO) 6.4 X10'3 (1.8-7.7); NEUTROPHILS % (AUTO) 71.5 % (42-75); PLATELET COUNT 54 X10'3 (140-440); RED BLOOD COUNT 2.14 X10'6 (4.20-5.60); RED CELL DISTRIBUTION WIDTH 18.8 % (11.5-14.5)
[2017-12-31 04:55] LABS: HEMATOCRIT 19.7 % (35.0-45.0)
[2017-12-31 05:01] LABS: ANISOCYTOSIS 2+; PLATELET ESTIMATE DECREASED; POLYCHROMASIA FEW; ROULEAUX 1+; SPHEROCYTES 1+
[2017-12-31] MEDS ORDERED: acetaminophen 325mg/10.15ml oral unit dose solution PO PRN ×2 (07:45)
[2017-12-31] MEDS: pantoprazole 40 MG vial IV SCH (07:45)
[2017-12-31] MEDS: linezolid 600mg/300ml PREMIX 300 ML IV SCH (07:45)
[2017-12-31] MEDS: amiodarone 200mg tablet PO SCH (07:45)
[2017-12-31] MEDS: folic acid/vitamin B complex w/vitamin C 0.8mg tablet PO SCH (07:45)
[2017-12-31] MEDS: aspirin 325mg tablet, delayed-release (Ecotrin) PO SCH (07:45)
[2017-12-31] MEDS: lactobacillus rhamnosus 10,000 MMU CELLS/CAPSULE PO SCH ×2 (07:46→20:54)
[2017-12-31] MEDS: magnesium Cl slow-release 64mg tablet PO SCH ×3 (07:46→20:45)
[2017-12-31] MEDS: Protein Smoothie (high protein) 240ml (8oz) cup PO SCH ×3 (07:46→17:46)
[2017-12-31] MEDS: heparin, porcine 5000 units/ml vial SQ SCH ×2 (07:48→20:00)
[2017-12-31] MEDS ORDERED: normal saline 1000ml 250 ML IV PRN ×2 (09:18→09:21)
[2017-12-31] MEDS ORDERED: heparin 1,000unit/ml 10ml vial 10 ML IV ONE (09:18)
[2017-12-31] MEDS ORDERED: epoetin 20,000 units/ml inj IV ONE ×2 (09:20→09:25)
[2017-12-31] MEDS ORDERED: heparin 1,000 units/ml 10ml inj HE ONE ×2 (09:25)
[2017-12-31] MEDS: linezolid 600mg tablet PO SCH (20:54)
[2017-12-31] MEDS: cefepime inj. 1 GM in dextrose 5%-water 100 ML IV SCH (21:51)
[2018-01-01] VITALS (28 sets, daily range): BP systolic 86–137; BP diastolic 30–63
[2018-01-01] MEDS: NORepinephrine 8mg/ 250ml NS 250 ML IV SCH ×3 (00:42→20:53)
[2018-01-01] MEDS: mineral oil/petrolatum ophthal oint EACHEYE SCH ×4 (02:00→20:00)
[2018-01-01] MEDS: ipratropium/albuterol 3ml nebule NEB SCH ×6 (02:40→22:57)
[2018-01-01 03:01] LABS: ABG BASE EXCESS 5.6 mmol/L (-2.0-3.0); ABG HCO3 28.8 mmol/L (22.0-26.0); ABG OXYGEN SATURATION 96.3 % (95-98); ABG PCO2 (T) 37.3 mmHg (32.0-45.0); ABG PO2 (T) 77.4 mmHg (83-108); FCOHb 0.6 % (0.5-1.5); FMetHb 0.1 % (0.3-1.12); FO2Hb 95.6 % (94-100); PATIENT TEMPERATURE 38.1; PEEP 5 cm H2O; RESPIRATORY RATE (OBSERVED) 20 b/min
[2018-01-01] MEDS: morphine/NS 100mg/100ml bag 100 ML IV SCH (03:25)
[2018-01-01 04:03] LABS: ALANINE AMINOTRANSFERASE 19 U/L (12-78); ALBUMIN 1.4 G/DL (3.4-5.0); ALBUMIN/GLOBULIN RATIO 0.2 (1.1-1.5); ALKALINE PHOSPHATASE 65 IU/L (46-116); ANION GAP 6 (8-16); ASPARTATE AMINO TRANSFERASE 10 U/L (10-37); BILIRUBIN,TOTAL 0.4 MG/DL (0.1-1.0); BLOOD UREA NITROGEN 11 MG/DL (7-18); BUN/CREATININE RATIO 9.2 (6.6-38.0); CALCIUM 7.4 MG/DL (8.5-10.1); CHLORIDE 98 MMOL/L (99-107); CREATININE 1.19 MG/DL (0.40-0.90); MAGNESIUM 1.5 MG/DL (1.5-2.4); POTASSIUM 3.5 MMOL/L (3.5-5.1); SODIUM 132 MMOL/L (135-145); TOTAL PROTEIN 7.1 G/DL (6.4-8.2); eGFR 44 ML/MIN
[2018-01-01 04:07] LABS: GLUCOSE 129 MG/DL (70-104)
[2018-01-01 04:09] LABS: PHOSPHORUS 0.9 MG/DL (2.3-4.5)
[2018-01-01] MEDS ORDERED: magnesium Cl slow-release 64mg tablet PO PRN (04:20)
[2018-01-01] MEDS ORDERED: Neutra Phos packet PO PRN (04:20)
[2018-01-01] MEDS ORDERED: magnesium 4gm in 100ml NS 100 ML IV PRN (04:20)
[2018-01-01] MEDS ORDERED: magnesium 2GM in 50ml NS 50 ML IV PRN (04:20)
[2018-01-01] MEDS ORDERED: sodium phosphate inj. 15 MMOL in dextrose 5%-water 150 ML IV PRN (04:20)
[2018-01-01] MEDS ORDERED: potassium Cl 40MEQ/250ML bag 250 ML IV PRN ×2 (04:20)
[2018-01-01] MEDS ORDERED: potassium Cl 20 mEq SR tablet PO PRN ×2 (04:20)
[2018-01-01 05:08] LABS: BASOPHILS % (AUTO) 0.5 % (0-1); EOSINOPHILS % (AUTO) 0 % (0-6); LYMPHOCYTES % (AUTO) 26.3 % (21-51); MEAN PLATELET VOLUME 6.8 FL (7.4-10.4); MONOCYTES # (AUTO) 0.2 X10'3 (0-0.9); MONOCYTES % (AUTO) 2.4 % (2-12); NEUTROPHILS # (AUTO) 5.3 X10'3 (1.8-7.7); NEUTROPHILS % (AUTO) 70.8 % (42-75); WHITE BLOOD COUNT 7.5 X10'3 (4.5-11.0)
[2018-01-01 05:40] LABS: MEAN CORPUSCULAR HEMOGLOBIN 30.5 PG (27.0-31.0); MEAN CORPUSCULAR HGB CONC 32.4 % (33.0-36.5); MEAN CORPUSCULAR VOLUME 94.1 FL (78-98); RED CELL DISTRIBUTION WIDTH 19.8 % (11.5-14.5)
[2018-01-01 05:45] LABS: HEMATOCRIT 18.8 % (35.0-45.0); HEMOGLOBIN 6.1 g/dl (12.0-16.0)
[2018-01-01 05:47] LABS: PLATELET COUNT 42 X10'3 (140-440)
[2018-01-01 05:49] LABS: ANISOCYTOSIS 2+; PLATELET ESTIMATE DECREASED; POLYCHROMASIA 1+; SPHEROCYTES 1+
[2018-01-01 05:50] LABS: HYPOCHROMASIA 1+; ROULEAUX 3+
[2018-01-01] MEDS: linezolid 600mg tablet PO SCH ×2 (07:31→20:52)
[2018-01-01] MEDS: folic acid/vitamin B complex w/vitamin C 0.8mg tablet PO SCH (07:31)
[2018-01-01] MEDS: pantoprazole 40 MG vial IV SCH (07:31)
[2018-01-01] MEDS: lactobacillus rhamnosus 10,000 MMU CELLS/CAPSULE PO SCH ×2 (07:31→20:52)
[2018-01-01] MEDS: amiodarone 200mg tablet PO SCH (07:31)
[2018-01-01] MEDS: heparin, porcine 5000 units/ml vial SQ SCH ×2 (07:32→18:52)
[2018-01-01] MEDS: aspirin 325mg tablet, delayed-release (Ecotrin) PO SCH (07:32)
[2018-01-01] MEDS: Protein Smoothie (high protein) 240ml (8oz) cup PO SCH ×3 (07:32→17:37)
[2018-01-01] MEDS: magnesium Cl slow-release 64mg tablet PO SCH ×3 (07:32→19:34)
[2018-01-01 09:25] LABS: MEAN PLATELET VOLUME 7.7 FL (7.4-10.4); RED BLOOD COUNT 2.59 X10'6 (4.20-5.60)
[2018-01-01 09:50] LABS: HEMOGLOBIN 7.7 g/dl (12.0-16.0); MEAN CORPUSCULAR HEMOGLOBIN 29.7 PG (27.0-31.0); MEAN CORPUSCULAR HGB CONC 33.6 % (33.0-36.5); MEAN CORPUSCULAR VOLUME 92.3 FL (78-98)
[2018-01-01 09:51] LABS: RED CELL DISTRIBUTION WIDTH 17.8 % (11.5-14.5)
[2018-01-01 09:52] LABS: PLATELET COUNT 38 X10'3 (140-440)
[2018-01-01 10:33] LABS: OCCULT BLOOD STOOL NEGATIVE (Neg)
[2018-01-01 10:34] LABS: % IRON SATURATION 136 % (11-46); IRON 91 UG/DL (49-151); TOTAL IRON BINDING CAPACITY 67 UG/DL (259-388)
[2018-01-01] MEDS: sodium phosphate inj. 30 MMOL in dextrose 5%-water 250 ML IV PRN (10:34)
[2018-01-01 10:41] LABS: OXYGEN SATURATION (MIXED VEN) 73.5 % (60-80); PO2 MIXED VENOUS (TEMP COR) 35.4 mmHg (35-46)
[2018-01-01 14:59] LABS: CLARITY,URINE TURBID (Clear); COLOR,URINE BROWN (Yellow); GLUCOSE, URINE 100 mg/dl (Neg); KETONES,URINE TRACE mg/dl (Neg); LEUKOCYTE ESTERASE ,URINE LARGE (Neg); NITRITES, URINE NEGATIVE (Neg); OCCULT BLOOD,URINE LARGE (Neg); PH,URINE 5.5 (4.8-8.0); PROTEIN,URINE >=300 mg/dl (Neg); UROBILINOGEN,URINE 0.2 E.U/dL (0.2-1.0)
[2018-01-01 15:07] LABS: UA COLLECTION TYPE FOLEY CATH
[2018-01-01 15:09] LABS: BACTERIA,URINE NONE SEEN /HPF (Neg); MUCUS STRANDS NONE SEEN /LPF (Neg); RBC,URINE 20-50 /HPF (0-2); SQUAMOUS EPITHELIAL CELL,UR NONE SEEN /LPF (FEW); WBC,URINE TNTC /HPF (0-4)
[2018-01-01 15:10] LABS: YEAST MANY /HPF (NEGATIVE)
[2018-01-01 20:51] LABS: HEMOGLOBIN 8.8 g/dl (12.0-16.0); MEAN CORPUSCULAR HEMOGLOBIN 32.1 PG (27.0-31.0); MEAN CORPUSCULAR HGB CONC 35.3 % (33.0-36.5); MEAN CORPUSCULAR VOLUME 90.9 FL (78-98); MEAN PLATELET VOLUME 7.4 FL (7.4-10.4); RED BLOOD COUNT 2.75 X10'6 (4.20-5.60); RED CELL DISTRIBUTION WIDTH 17.4 % (11.5-14.5); WHITE BLOOD COUNT 11.3 X10'3 (4.5-11.0)
[2018-01-01 20:59] LABS: PLATELET COUNT 35 X10'3 (140-440)
[2018-01-01] MEDS: cefepime inj. 1 GM in dextrose 5%-water 100 ML IV SCH (21:21)
[2018-01-02] VITALS (23 sets, daily range): BP systolic 90–135; BP diastolic 45–74
[2018-01-02] MEDS: mineral oil/petrolatum ophthal oint EACHEYE SCH ×4 (02:00→19:55)
[2018-01-02 02:52] LABS: ALANINE AMINOTRANSFERASE 19 U/L (12-78); ALBUMIN 1.3 G/DL (3.4-5.0); ALBUMIN/GLOBULIN RATIO 0.2 (1.1-1.5); ALKALINE PHOSPHATASE 72 IU/L (46-116); ANION GAP 7 (8-16); ASPARTATE AMINO TRANSFERASE 11 U/L (10-37); BILIRUBIN,TOTAL 0.4 MG/DL (0.1-1.0); BLOOD UREA NITROGEN 22 MG/DL (7-18); BUN/CREATININE RATIO 13.9 (6.6-38.0); CALCIUM 7.2 MG/DL (8.5-10.1); CHLORIDE 98 MMOL/L (99-107); CREATININE 1.58 MG/DL (0.40-0.90); MAGNESIUM 1.3 MG/DL (1.5-2.4); PHOSPHORUS 2.2 MG/DL (2.3-4.5); POTASSIUM 3.6 MMOL/L (3.5-5.1); SODIUM 130 MMOL/L (135-145); TOTAL CARBON DIOXIDE 24.9 MMOL/L (24-32); TOTAL PROTEIN 7.3 G/DL (6.4-8.2); eGFR 31 ML/MIN
[2018-01-02] MEDS: ipratropium/albuterol 3ml nebule NEB SCH ×6 (02:53→22:52)
[2018-01-02 02:56] LABS: GLUCOSE 140 MG/DL (70-104)
[2018-01-02 03:08] LABS: BASOPHILS # (AUTO) 0.1 X10'3 (0-0.2); BASOPHILS % (AUTO) 0.7 % (0-1); EOSINOPHILS # (AUTO) 0.1 X10'3 (0-0.9); EOSINOPHILS % (AUTO) 1.2 % (0-6); HEMATOCRIT 24.4 % (35.0-45.0); HEMOGLOBIN 8.2 g/dl (12.0-16.0); LYMPHOCYTES # (AUTO) 2.6 X10'3 (1.1-4.8); LYMPHOCYTES % (AUTO) 25.1 % (21-51); MEAN CORPUSCULAR HEMOGLOBIN 31.2 PG (27.0-31.0); MEAN CORPUSCULAR HGB CONC 33.7 % (33.0-36.5); MEAN CORPUSCULAR VOLUME 92.6 FL (78-98); MEAN PLATELET VOLUME 7.4 FL (7.4-10.4); MONOCYTES # (AUTO) 0.2 X10'3 (0-0.9); MONOCYTES % (AUTO) 1.7 % (2-12); NEUTROPHILS # (AUTO) 7.3 X10'3 (1.8-7.7); NEUTROPHILS % (AUTO) 71.3 % (42-75); RED BLOOD COUNT 2.63 X10'6 (4.20-5.60); RED CELL DISTRIBUTION WIDTH 18.2 % (11.5-14.5); WHITE BLOOD COUNT 10.3 X10'3 (4.5-11.0)
[2018-01-02 03:18] LABS: PLATELET COUNT 35 X10'3 (140-440)
[2018-01-02 03:20] LABS: ABG BASE EXCESS -1.6 mmol/L (-2.0-3.0); ABG HCO3 23.4 mmol/L (22.0-26.0); ABG OXYGEN SATURATION 97.7 % (95-98); ABG PH (T) 7.383 (7.350-7.450); ABG PO2 (T) 88.2 mmHg (83-108); ALLEN'S TEST Positive; FCOHb 1.1 % (0.5-1.5); FMetHb 0.1 % (0.3-1.12); FO2Hb 96.5 % (94-100); MINUTE VOLUME 5 L/min; PATIENT TEMPERATURE 36.5; PEEP 5 cm H2O; RESPIRATORY RATE (OBSERVED) 20 b/min; TOTAL HEMOGLOBIN 8.5 G/dl (12.0-16.0)
[2018-01-02] MEDS: linezolid 600mg tablet PO SCH ×2 (07:18→20:17)
[2018-01-02] MEDS: lactobacillus rhamnosus 10,000 MMU CELLS/CAPSULE PO SCH ×2 (07:18→20:17)
[2018-01-02] MEDS: amiodarone 200mg tablet PO SCH (07:18)
[2018-01-02] MEDS: pantoprazole 40 MG vial IV SCH (07:18)
[2018-01-02] MEDS: folic acid/vitamin B complex w/vitamin C 0.8mg tablet PO SCH (07:19)
[2018-01-02] MEDS: magnesium Cl slow-release 64mg tablet PO SCH ×3 (07:19→20:17)
[2018-01-02] MEDS: Protein Smoothie (high protein) 240ml (8oz) cup PO SCH ×3 (07:19→17:06)
[2018-01-02] MEDS: aspirin 325mg tablet, delayed-release (Ecotrin) PO SCH (07:20)
[2018-01-02] MEDS: heparin, porcine 5000 units/ml vial SQ SCH ×2 (07:21→19:52)
[2018-01-02] MEDS: NORepinephrine 8mg/ 250ml NS 250 ML IV SCH ×2 (07:35→21:19)
[2018-01-02] MEDS ORDERED: albumin (human) 25% 100ml IV 100 ML IV PRN (08:00)
[2018-01-02] MEDS ORDERED: normal saline 1000ml 100 ML IV PRN (08:00)
[2018-01-02] MEDS ORDERED: heparin 1,000 units/ml 10ml inj HE ONE ×2 (08:00)
[2018-01-02] MEDS ORDERED: epoetin 20,000 units/ml inj IV ONE (08:00)
[2018-01-02] MEDS: hydrocortisone sod succ/PF 100mg/2ml inj. IV SCH ×3 (11:14→20:17)
[2018-01-02] MEDS: morphine/NS 100mg/100ml bag 100 ML IV SCH (19:25)
[2018-01-02] MEDS: cefepime inj. 1 GM in dextrose 5%-water 100 ML IV SCH (20:17)
[2018-01-03] VITALS (21 sets, daily range): BP systolic 91–128; BP diastolic 41–68
[2018-01-03] MEDS: mineral oil/petrolatum ophthal oint EACHEYE SCH ×4 (02:00→20:21)
[2018-01-03] MEDS: hydrocortisone sod succ/PF 100mg/2ml inj. IV SCH ×4 (02:23→20:21)
[2018-01-03 02:29] LABS: BASOPHILS # (AUTO) 0.2 X10'3 (0-0.2); EOSINOPHILS % (AUTO) 0 % (0-6); HEMATOCRIT 23.5 % (35.0-45.0); HEMOGLOBIN 7.9 g/dl (12.0-16.0); LYMPHOCYTES # (AUTO) 1.9 X10'3 (1.1-4.8); LYMPHOCYTES % (AUTO) 20.2 % (21-51); MEAN CORPUSCULAR HEMOGLOBIN 31.4 PG (27.0-31.0); MEAN CORPUSCULAR HGB CONC 33.8 % (33.0-36.5); MEAN PLATELET VOLUME 9.8 FL (7.4-10.4); MONOCYTES # (AUTO) 0.1 X10'3 (0-0.9); NEUTROPHILS # (AUTO) 7.1 X10'3 (1.8-7.7); NEUTROPHILS % (AUTO) 76.8 % (42-75); RED BLOOD COUNT 2.52 X10'6 (4.20-5.60); RED CELL DISTRIBUTION WIDTH 18.5 % (11.5-14.5); WHITE BLOOD COUNT 9.3 X10'3 (4.5-11.0)
[2018-01-03 02:33] LABS: PLATELET COUNT 22 X10'3 (140-440)
[2018-01-03 02:52] LABS: ALANINE AMINOTRANSFERASE 18 U/L (12-78); ALBUMIN 1.6 G/DL (3.4-5.0); ALBUMIN/GLOBULIN RATIO 0.3 (1.1-1.5); ALKALINE PHOSPHATASE 66 IU/L (46-116); ANION GAP 8 (8-16); ASPARTATE AMINO TRANSFERASE 10 U/L (10-37); BILIRUBIN,TOTAL 0.3 MG/DL (0.1-1.0); BLOOD UREA NITROGEN 20 MG/DL (7-18); BUN/CREATININE RATIO 15.5 (6.6-38.0); CALCIUM 7.5 MG/DL (8.5-10.1); CHLORIDE 99 MMOL/L (99-107); CREATININE 1.29 MG/DL (0.40-0.90); MAGNESIUM 1.5 MG/DL (1.5-2.4); PHOSPHORUS 1.5 MG/DL (2.3-4.5); POTASSIUM 4.3 MMOL/L (3.5-5.1); SODIUM 133 MMOL/L (135-145); TOTAL CARBON DIOXIDE 26.2 MMOL/L (24-32); TOTAL PROTEIN 7.6 G/DL (6.4-8.2); eGFR 40 ML/MIN
[2018-01-03 02:55] LABS: GLUCOSE 159 MG/DL (70-104)
[2018-01-03] MEDS: ipratropium/albuterol 3ml nebule NEB SCH ×6 (03:06→22:34)
[2018-01-03 03:26] LABS: ABG BASE EXCESS 0.3 mmol/L (-2.0-3.0); ABG HCO3 24.4 mmol/L (22.0-26.0); ABG PCO2 (T) 36.8 mmHg (32.0-45.0); ABG PH (T) 7.438 (7.350-7.450); ABG PO2 (T) 92.3 mmHg (83-108); ALLEN'S TEST Positive; FCOHb 0.6 % (0.5-1.5); FMetHb 0.1 % (0.3-1.12); FO2Hb 97.3 % (94-100); MINUTE VOLUME 6 L/min; PATIENT TEMPERATURE 36.9; PEEP 5 cm H2O; RESPIRATORY RATE (OBSERVED) 21 b/min; TOTAL HEMOGLOBIN 8.9 G/dl (12.0-16.0)
[2018-01-03] MEDS: Protein Smoothie (high protein) 240ml (8oz) cup PO SCH ×3 (06:51→18:00)
[2018-01-03] MEDS: amiodarone 200mg tablet PO SCH (07:37)
[2018-01-03] MEDS: lactobacillus rhamnosus 10,000 MMU CELLS/CAPSULE PO SCH ×2 (07:37→20:21)
[2018-01-03] MEDS: aspirin 325mg tablet, delayed-release (Ecotrin) PO SCH (07:37)
[2018-01-03] MEDS: folic acid/vitamin B complex w/vitamin C 0.8mg tablet PO SCH (07:37)
[2018-01-03] MEDS: magnesium Cl slow-release 64mg tablet PO SCH ×3 (07:37→20:21)
[2018-01-03] MEDS: linezolid 600mg tablet PO SCH ×2 (07:37→20:21)
[2018-01-03] MEDS: pantoprazole 40 MG vial IV SCH (07:38)
[2018-01-03] MEDS: heparin, porcine 5000 units/ml vial SQ SCH ×2 (08:00→20:00)
[2018-01-03] MEDS: fluconazole-Diflucan 200mg/NS 100 ML IV SCH (14:33)
[2018-01-03] MEDS: cefepime inj. 1 GM in dextrose 5%-water 100 ML IV SCH (20:21)
[2018-01-04] VITALS (26 sets, daily range): BP systolic 91–140; BP diastolic 40–73
[2018-01-04] MEDS: hydrocortisone sod succ/PF 100mg/2ml inj. IV SCH ×4 (01:41→20:38)
[2018-01-04] MEDS: mineral oil/petrolatum ophthal oint EACHEYE SCH ×4 (01:41→20:41)
[2018-01-04] MEDS: ipratropium/albuterol 3ml nebule NEB SCH ×6 (02:31→23:37)
[2018-01-04 02:55] LABS: ABG BASE EXCESS -3.8 mmol/L (-2.0-3.0); ABG HCO3 20.1 mmol/L (22.0-26.0); ABG OXYGEN SATURATION 97.8 % (95-98); ABG PCO2 (T) 29.5 mmHg (32.0-45.0); ABG PH (T) 7.449 (7.350-7.450); ABG PO2 (T) 104.4 mmHg (83-108); ALLEN'S TEST Positive; FCOHb 0.8 % (0.5-1.5); FMetHb 0.3 % (0.3-1.12); FO2Hb 96.7 % (94-100); MINUTE VOLUME 7 L/min; PATIENT TEMPERATURE 36.6; PEEP 5 cm H2O; TOTAL HEMOGLOBIN 5.1 G/dl (12.0-16.0)
[2018-01-04 03:11] LABS: ABG HCO3 21.3 mmol/L (22.0-26.0); ABG OXYGEN SATURATION 98.1 % (95-98); ABG PCO2 (T) 33.4 mmHg (32.0-45.0); ABG PO2 (T) 98.7 mmHg (83-108); ALLEN'S TEST Positive; FCOHb 0.4 % (0.5-1.5); FMetHb 0.1 % (0.3-1.12); FO2Hb 97.6 % (94-100); MINUTE VOLUME 8 L/min; PATIENT TEMPERATURE 36.6; PEEP 5 cm H2O; RESPIRATORY RATE (OBSERVED) 21 b/min; TOTAL HEMOGLOBIN 6.9 G/dl (12.0-16.0)
[2018-01-04 04:28] LABS: BASOPHILS % (AUTO) 0.2 % (0-1); EOSINOPHILS # (AUTO) 0.1 X10'3 (0-0.9); EOSINOPHILS % (AUTO) 0.7 % (0-6); LYMPHOCYTES # (AUTO) 1.6 X10'3 (1.1-4.8); LYMPHOCYTES % (AUTO) 21.7 % (21-51); MEAN CORPUSCULAR HEMOGLOBIN 31.5 PG (27.0-31.0); MEAN CORPUSCULAR HGB CONC 33.6 % (33.0-36.5); MEAN CORPUSCULAR VOLUME 93.6 FL (78-98); MEAN PLATELET VOLUME 10.1 FL (7.4-10.4); MONOCYTES # (AUTO) 0.1 X10'3 (0-0.9); MONOCYTES % (AUTO) 0.7 % (2-12); NEUTROPHILS # (AUTO) 5.6 X10'3 (1.8-7.7); NEUTROPHILS % (AUTO) 76.7 % (42-75); RED BLOOD COUNT 2.09 X10'6 (4.20-5.60); RED CELL DISTRIBUTION WIDTH 18.7 % (11.5-14.5); WHITE BLOOD COUNT 7.3 X10'3 (4.5-11.0)
[2018-01-04 04:32] LABS: HEMATOCRIT 19.5 % (35.0-45.0); HEMOGLOBIN 6.6 g/dl (12.0-16.0)
[2018-01-04 04:33] LABS: PLATELET COUNT 17 X10'3 (140-440)
[2018-01-04 05:03] LABS: ALANINE AMINOTRANSFERASE 21 U/L (12-78); ALBUMIN 1.5 G/DL (3.4-5.0); ALBUMIN/GLOBULIN RATIO 0.3 (1.1-1.5); ALKALINE PHOSPHATASE 63 IU/L (46-116); ANION GAP 11 (8-16); ASPARTATE AMINO TRANSFERASE 12 U/L (10-37); BILIRUBIN,TOTAL 0.2 MG/DL (0.1-1.0); BLOOD UREA NITROGEN 36 MG/DL (7-18); BUN/CREATININE RATIO 21.4 (6.6-38.0); CALCIUM 7.8 MG/DL (8.5-10.1); CHLORIDE 99 MMOL/L (99-107); CREATININE 1.68 MG/DL (0.40-0.90); MAGNESIUM 1.4 MG/DL (1.5-2.4); POTASSIUM 4.2 MMOL/L (3.5-5.1); SODIUM 133 MMOL/L (135-145); TOTAL PROTEIN 7.4 G/DL (6.4-8.2); eGFR 29 ML/MIN
[2018-01-04 05:05] LABS: GLUCOSE 146 MG/DL (70-104)
[2018-01-04 05:08] LABS: PHOSPHORUS 1.1 MG/DL (2.3-4.5)
[2018-01-04] MEDS: folic acid/vitamin B complex w/vitamin C 0.8mg tablet PO SCH (07:46)
[2018-01-04] MEDS: amiodarone 200mg tablet PO SCH (07:46)
[2018-01-04] MEDS: lactobacillus rhamnosus 10,000 MMU CELLS/CAPSULE PO SCH ×2 (07:46→20:39)
[2018-01-04] MEDS: magnesium Cl slow-release 64mg tablet PO SCH (07:46)
[2018-01-04] MEDS: linezolid 600mg tablet PO SCH ×2 (07:46→21:14)
[2018-01-04] MEDS: aspirin 325mg tablet, delayed-release (Ecotrin) PO SCH (07:46)
[2018-01-04] MEDS: pantoprazole 40 MG vial IV SCH (07:46)
[2018-01-04] MEDS: fluconazole-Diflucan 200mg/NS 100 ML IV SCH (07:48)
[2018-01-04] MEDS: Protein Smoothie (high protein) 240ml (8oz) cup PO SCH ×3 (08:00→18:00)
[2018-01-04] MEDS: heparin, porcine 5000 units/ml vial SQ SCH ×2 (08:00→20:00)
[2018-01-04] MEDS: morphine/NS 100mg/100ml bag 100 ML IV SCH (11:25)
[2018-01-04] MEDS: sodium phosphate inj. 30 MMOL in dextrose 5%-water 250 ML IV PRN (13:42)
[2018-01-04] MEDS ORDERED: Dextrose 10%-water IV solution 1,000 ML IV PRN (20:00)
[2018-01-04] MEDS ORDERED: magnesium 2GM in 50ml NS 50 ML IV PRN (20:00)
[2018-01-04] MEDS ORDERED: magnesium 4gm in 100ml NS 100 ML IV PRN (20:00)
[2018-01-04] MEDS: fat emulsion IV 100 ML, MVI, adult No.4 with vit. K 5 ML, Trace element-5 inj. 0.5 ML i... IV SCH ×4 (20:38)
[2018-01-04] MEDS: cefepime inj. 1 GM in dextrose 5%-water 100 ML IV SCH (20:39)
[2018-01-05] VITALS (26 sets, daily range): BP systolic 101–145; BP diastolic 41–111
[2018-01-05] MEDS: hydrocortisone sod succ/PF 100mg/2ml inj. IV SCH ×4 (02:28→20:28)
[2018-01-05] MEDS: mineral oil/petrolatum ophthal oint EACHEYE SCH ×4 (02:28→20:44)
[2018-01-05 03:05] LABS: ALANINE AMINOTRANSFERASE 21 U/L (12-78); ALBUMIN 1.5 G/DL (3.4-5.0); ALBUMIN/GLOBULIN RATIO 0.3 (1.1-1.5); ALKALINE PHOSPHATASE 67 IU/L (46-116); ANION GAP 12 (8-16); ASPARTATE AMINO TRANSFERASE 13 U/L (10-37); BILIRUBIN,TOTAL 0.3 MG/DL (0.1-1.0); BLOOD UREA NITROGEN 54 MG/DL (7-18); BUN/CREATININE RATIO 29.3 (6.6-38.0); CALCIUM 7.7 MG/DL (8.5-10.1); CHLORIDE 99 MMOL/L (99-107); CREATININE 1.84 MG/DL (0.40-0.90); MAGNESIUM 1.4 MG/DL (1.5-2.4); PHOSPHORUS 2.9 MG/DL (2.3-4.5); PREALBUMIN 17.1 MG/DL (19-36); SODIUM 133 MMOL/L (135-145); TOTAL CARBON DIOXIDE 22.1 MMOL/L (24-32); TOTAL PROTEIN 7.3 G/DL (6.4-8.2); TRIGLYCERIDES 74 MG/DL (20-135); eGFR 26 ML/MIN
[2018-01-05 03:11] LABS: GLUCOSE 127 MG/DL (70-104)
[2018-01-05] MEDS: ipratropium/albuterol 3ml nebule NEB SCH ×5 (03:52→20:27)
[2018-01-05 04:05] LABS: ABG BASE EXCESS -5.3 mmol/L (-2.0-3.0); ABG HCO3 19.1 mmol/L (22.0-26.0); ABG OXYGEN SATURATION 97.7 % (95-98); ABG PCO2 (T) 31.9 mmHg (32.0-45.0); ABG PH (T) 7.393 (7.350-7.450); ABG PO2 (T) 100.7 mmHg (83-108); ALLEN'S TEST Positive; FCOHb 0.3 % (0.5-1.5); FMetHb 0.3 % (0.3-1.12); FO2Hb 97.1 % (94-100); MINUTE VOLUME 8 L/min; PATIENT TEMPERATURE 36.4; PEEP 5 cm H2O; RESPIRATORY RATE (OBSERVED) 18 b/min; TOTAL HEMOGLOBIN 8.2 G/dl (12.0-16.0)
[2018-01-05 06:54] LABS: BASOPHILS % (AUTO) 0.7 % (0-1); EOSINOPHILS % (AUTO) 0.6 % (0-6); HEMOGLOBIN 7.4 g/dl (12.0-16.0); LYMPHOCYTES # (AUTO) 2.5 X10'3 (1.1-4.8); LYMPHOCYTES % (AUTO) 36.8 % (21-51); MEAN CORPUSCULAR HEMOGLOBIN 31.8 PG (27.0-31.0); MEAN CORPUSCULAR HGB CONC 34.2 % (33.0-36.5); MEAN PLATELET VOLUME 10.2 FL (7.4-10.4); MONOCYTES # (AUTO) 0.1 X10'3 (0-0.9); MONOCYTES % (AUTO) 1.4 % (2-12); NEUTROPHILS # (AUTO) 4.1 X10'3 (1.8-7.7); NEUTROPHILS % (AUTO) 60.5 % (42-75); RED BLOOD COUNT 2.34 X10'6 (4.20-5.60); RED CELL DISTRIBUTION WIDTH 17.1 % (11.5-14.5); WHITE BLOOD COUNT 6.8 X10'3 (4.5-11.0)
[2018-01-05 07:01] LABS: HEMATOCRIT 21.8 % (35.0-45.0)
[2018-01-05 07:02] LABS: PLATELET COUNT 14 X10'3 (140-440)
[2018-01-05] MEDS: aspirin 325mg tablet, delayed-release (Ecotrin) PO SCH (08:00)
[2018-01-05] MEDS: Protein Smoothie (high protein) 240ml (8oz) cup PO SCH ×3 (08:00→18:00)
[2018-01-05] MEDS: linezolid 600mg tablet PO SCH (08:06)
[2018-01-05] MEDS: pantoprazole 40 MG vial IV SCH (08:06)
[2018-01-05] MEDS: amiodarone 200mg tablet PO SCH (08:06)
[2018-01-05] MEDS: folic acid/vitamin B complex w/vitamin C 0.8mg tablet PO SCH (08:06)
[2018-01-05] MEDS: lactobacillus rhamnosus 10,000 MMU CELLS/CAPSULE PO SCH ×2 (08:06→20:00)
[2018-01-05] MEDS: fluconazole-Diflucan 200mg/NS 100 ML IV SCH (08:07)
[2018-01-05] MEDS ORDERED: heparin 1,000unit/ml 10ml vial 10 ML IV ONE (08:25)
[2018-01-05] MEDS ORDERED: epoetin 20,000 units/ml inj IV ONE (08:25)
[2018-01-05] MEDS ORDERED: albumin (human) 25% 100ml IV 100 ML IV PRN (08:30)
[2018-01-05] MEDS ORDERED: heparin 1,000 units/ml 10ml inj HE ONE ×2 (08:30)
[2018-01-05] MEDS ORDERED: aspirin 325mg tablet PO SCH (08:42)
[2018-01-05] MEDS ORDERED: aspirin 81mg tablet.DR PO SCH (09:14)
[2018-01-05] MEDS ORDERED: aspirin 81mg tab.chew PO SCH (11:26)
[2018-01-05] MEDS: fat emulsion IV 100 ML, MVI, adult No.4 with vit. K 5 ML, Trace element-5 inj. 0.5 ML i... IV SCH ×4 (12:55)
[2018-01-05] MEDS: cefepime inj. 1 GM in dextrose 5%-water 100 ML IV SCH (20:56)
[2018-01-05] MEDS: linezolid 600mg/300ml PREMIX 300 ML IV SCH (22:02)
[2018-01-06] VITALS (12 sets, daily range): BP systolic 102–149; BP diastolic 60–90
[2018-01-06] MEDS: hydrocortisone sod succ/PF 100mg/2ml inj. IV SCH ×2 (02:20→08:00)
[2018-01-06] MEDS: mineral oil/petrolatum ophthal oint EACHEYE SCH ×2 (02:20→07:55)
[2018-01-06 02:43] LABS: BASOPHILS % (AUTO) 0.3 % (0-1); EOSINOPHILS # (AUTO) 0.1 X10'3 (0-0.9); EOSINOPHILS % (AUTO) 1.2 % (0-6); HEMATOCRIT 25.6 % (35.0-45.0); HEMOGLOBIN 8.9 g/dl (12.0-16.0); LYMPHOCYTES # (AUTO) 1.3 X10'3 (1.1-4.8); LYMPHOCYTES % (AUTO) 24.7 % (21-51); MEAN CORPUSCULAR HEMOGLOBIN 31.9 PG (27.0-31.0); MEAN CORPUSCULAR HGB CONC 34.8 % (33.0-36.5); MEAN CORPUSCULAR VOLUME 91.7 FL (78-98); MEAN PLATELET VOLUME 8.9 FL (7.4-10.4); MONOCYTES # (AUTO) 0.1 X10'3 (0-0.9); MONOCYTES % (AUTO) 1.5 % (2-12); NEUTROPHILS # (AUTO) 3.9 X10'3 (1.8-7.7); NEUTROPHILS % (AUTO) 72.3 % (42-75); RED BLOOD COUNT 2.79 X10'6 (4.20-5.60); RED CELL DISTRIBUTION WIDTH 16.1 % (11.5-14.5)
[2018-01-06 02:44] LABS: WHITE BLOOD COUNT 5.9 X10'3 (4.5-11.0)
[2018-01-06 02:46] LABS: PLATELET COUNT 13 X10'3 (140-440)
[2018-01-06 02:50] LABS: ALANINE AMINOTRANSFERASE 26 U/L (12-78); ALBUMIN 1.5 G/DL (3.4-5.0); ALBUMIN/GLOBULIN RATIO 0.3 (1.1-1.5); ALKALINE PHOSPHATASE 64 IU/L (46-116); ANION GAP 9 (8-16); ASPARTATE AMINO TRANSFERASE 12 U/L (10-37); BILIRUBIN,TOTAL 0.6 MG/DL (0.1-1.0); BLOOD UREA NITROGEN 38 MG/DL (7-18); BUN/CREATININE RATIO 30.9 (6.6-38.0); CALCIUM 7.9 MG/DL (8.5-10.1); CHLORIDE 97 MMOL/L (99-107); CREATININE 1.23 MG/DL (0.40-0.90); GLUCOSE 150 MG/DL (70-104); MAGNESIUM 1.7 MG/DL (1.5-2.4); POTASSIUM 4.3 MMOL/L (3.5-5.1); SODIUM 130 MMOL/L (135-145); TOTAL CARBON DIOXIDE 23.6 MMOL/L (24-32); TOTAL PROTEIN 7.5 G/DL (6.4-8.2); eGFR 42 ML/MIN
[2018-01-06 02:53] LABS: PLATELET ESTIMATE DECREASED; ROULEAUX 3+; SPHEROCYTES 2+
[2018-01-06 02:54] LABS: ANISOCYTOSIS 1+; POLYCHROMASIA FEW
[2018-01-06] MEDS: morphine/NS 100mg/100ml bag 100 ML IV SCH (03:25)
[2018-01-06] MEDS: folic acid/vitamin B complex w/vitamin C 0.8mg tablet PO SCH (08:00)
[2018-01-06] MEDS: fluconazole-Diflucan 200mg/NS 100 ML IV SCH (08:00)
[2018-01-06] MEDS: pantoprazole 40 MG vial IV SCH (08:00)
[2018-01-06] MEDS: Protein Smoothie (high protein) 240ml (8oz) cup PO SCH (08:00)
[2018-01-06] MEDS: linezolid 600mg/300ml PREMIX 300 ML IV SCH (08:00)
[2018-01-06] MEDS: ipratropium/albuterol 3ml nebule NEB SCH (09:20)
== END 2018-01-06 11:50 | disposition expired | DRG 870 ==
LOC: ER 18:02 → ED HOLD 21:21 → PCU 3S 12-27 01:10 → ICU 2S 12-29 05:21
PROVIDERS: ADMIT Internal Medicine Critical Care Medicine; ATTEND Internal Medicine Critical Care Medicine
PROC: 02HV33Z Insertion of Infusion Device into Superior Vena Cava, Percutaneous Approach (ICD-10-PCS; 2017-12-26)
PROC: B548ZZA Ultrasonography of Superior Vena Cava, Guidance (ICD-10-PCS; 2017-12-26)
PROC: 5A1D70Z Performance of Urinary Filtration, Intermittent, Less than 6 Hours Per Day (ICD-10-PCS; 2017-12-27)
PROC: 5A09357 Assistance with Respiratory Ventilation, Less than 24 Consecutive Hours, Continuous Positive Airway Pressure (ICD-10-PCS; 2017-12-28)
PROC: 5A1D70Z Performance of Urinary Filtration, Intermittent, Less than 6 Hours Per Day (ICD-10-PCS; 2017-12-28)
PROC: 30233R1 Transfusion of Nonautologous Platelets into Peripheral Vein, Percutaneous Approach (ICD-10-PCS; 2017-12-28)
PROC: 5A1955Z Respiratory Ventilation, Greater than 96 Consecutive Hours (ICD-10-PCS; principal; 2017-12-29)
PROC: 0BH17EZ Insertion of Endotracheal Airway into Trachea, Via Natural or Artificial Opening (ICD-10-PCS; 2017-12-29)
PROC: 5A09357 Assistance with Respiratory Ventilation, Less than 24 Consecutive Hours, Continuous Positive Airway Pressure (ICD-10-PCS; 2017-12-29)
PROC: 5A1D70Z Performance of Urinary Filtration, Intermittent, Less than 6 Hours Per Day (ICD-10-PCS; 2017-12-29)
PROC: 0BJ08ZZ Inspection of Tracheobronchial Tree, Via Natural or Artificial Opening Endoscopic (ICD-10-PCS; 2017-12-29)
PROC: 5A1D70Z Performance of Urinary Filtration, Intermittent, Less than 6 Hours Per Day (ICD-10-PCS; 2017-12-31)
PROC: 30233N1 Transfusion of Nonautologous Red Blood Cells into Peripheral Vein, Percutaneous Approach (ICD-10-PCS; 2018-01-01)
PROC: 5A1D70Z Performance of Urinary Filtration, Intermittent, Less than 6 Hours Per Day (ICD-10-PCS; 2018-01-02)
PROC: 3E0436Z Introduction of Nutritional Substance into Central Vein, Percutaneous Approach (ICD-10-PCS; 2018-01-04)
PROC: 5A1D70Z Performance of Urinary Filtration, Intermittent, Less than 6 Hours Per Day (ICD-10-PCS; 2018-01-05)
DX: A41.9 Sepsis, unspecified organism (principal); J96.21 Acute and chronic respiratory failure with hypoxia; E43 Unspecified severe protein-calorie malnutrition; R65.21 Severe sepsis with septic shock; J18.9 Pneumonia, unspecified organism; T17.890A Other foreign object in other parts of respiratory tract causing asphyxiation, initial encounter; K90.9 Intestinal malabsorption, unspecified; N18.6 End stage renal disease; D63.8 Anemia in other chronic diseases classified elsewhere; F03.90 Unspecified dementia, unspecified severity, without behavioral disturbance, psychotic disturbance, mood disturbance, and anxiety; I46.9 Cardiac arrest, cause unspecified; X58.XXXA Exposure to other specified factors, initial encounter; Y95 Nosocomial condition; Z66 Do not resuscitate; Z60.2 Problems related to living alone; Z99.2 Dependence on renal dialysis; Z90.49 Acquired absence of other specified parts of digestive tract; Z88.2 Allergy status to sulfonamides; Z79.899 Other long term (current) drug therapy; Z85.038 Personal history of other malignant neoplasm of large intestine; Z82.5 Family history of asthma and other chronic lower respiratory diseases; Z68.21 Body mass index [BMI] 21.0-21.9, adult; Y93.89 Activity, other specified; Y92.89 Other specified places as the place of occurrence of the external cause; Y99.8 Other external cause status
CPT/HCPCS: 31645; 36415; 36600; 71045; 74176; 80048; 80053; 81001; 82272; 82803; 82810; 82948; 83010; 83540; 83550; 83605; 83735; 83880; 84100; 84134; 84145; 84478; 84484; 85018; 85025; 85027; 85379; 85384; 85610; 85730; 86022; 86885; 86900; 86901; 86920; 87040; 87045; 87046; 87070; 87077; 87088; 87324; 87340; 87449; 89055; 90935; 92616; 93005; 94002; 94003; 94640; 94660; 94667; 94760; 97162; 97530; 99291; A4421; A4649; A6196; A6209; A6212; A6213; A6222; A6257; A6446; A6449; A7015; C1751; C1758; C9113; G0257; J0692; J0885; J1450; J1644; J1720; J2020; J2250; J2270; J2405; J2997; J3490; J7030; J7060; P9016; P9035; P9045; P9047